=== PATIENT | male | born 1940 | race Caucasian/White ===

== ENCOUNTER 2017-11-13 08:50 | Outpatient (CLI) | payer MEDICARE, OTHER ==
--- NOTE | 2017-11-19 09:28 | PFT ---
PATIENT HISTORY: HEIGHT:71 IN WEIGHT: 276 SMOKER: NO HOW LONG: QUIT 20 PLUS YRS AGO PACKS PER DAY 2 PRODUCTIVE COUGH: NO LUNG DISEASE: PHYSICIAN INTERPRETATION FINAL REPORT: registered pharmacy technician comments patient and good effort and cooperation FVC 1.96 (45%), FEV1 1.69 (59%), FEV1/FVC 0.86. TLC 3.19 (45%), FRC 1.58 (39%), RV 1.34 (49%). Diffusion 5.54 (23%). There is a symmetric reduction to both the FEV1 and the FVC. The ratio suggestive of a restrictive profile. The restriction is confirmed with reduced lung volumes. Diffusion capacity is severely impaired. IMPRESSION: These pulmonary function studies are consistent with severe restrictive lung disease with severe reduction in gas exchange. This is in keeping with the patient's diagnosis of pulmonary fibrosis. There is no significant improvement following bronchodilator. Dry Wall Applicator: KEY Sign Language Translator: KEY LAZCANO
== END 2017-11-13 08:51 | disposition home or self-care (01) ==
LOC: CP 08:50
PROVIDERS: ATTEND Internal Medicine Critical Care Medicine
DX: J84.10 Pulmonary fibrosis, unspecified (principal)
CPT/HCPCS: 94060; 94727; 94729

== ENCOUNTER 2018-09-26 16:58 | Inpatient (IN) | payer MEDICARE, OTHER ==
[~2018-09-26 16:58] MED LIST: ISOVUE-370 76%-LOCM 1 ML ONE
[2018-09-26] MEDS ORDERED: Albuterol Sulfate 2.5 mg/0.5 ml Neb ONE ×2 (17:41→17:42)
[2018-09-26] MEDS ORDERED: Azithromycin 500 MG VIAL ONE (18:00)
[2018-09-26] MEDS ORDERED: Acetaminophen 325 MG TAB PO PRN (19:24)
--- NOTE | 2018-09-26 19:24 | CT ---
CT ANGIOGRAM OF THE CHEST 09/26/18 HISTORY: Elevated D-dimer. Pneumonia. Evaluate for pulmonary embolism. COMPARISON: None. TECHNIQUE: CT angiogram of the chest is performed in the axial plane. Three dimensional reformatted images are s ubmitted for interpretation. FINDINGS: No mediastinal mass, lymphadenopathy or hematoma. Heart is borderline enlarged. Small amount of peric ardial fluid. The visualized aorta has a normal caliber. No periaortic fat stranding. There is inter mittent calcified plaque. There are coronary calcifications. There is hyperplasia of the left adrenal gland. Hypodensities in the left and right kidney is too sma ll to characterize. Loculated right sided pleural effusion. There is consolidation in the right lower lobe due to atelect asis, pneumonia or aspiration. Additionally, there appear to be chronic interstitial changes involvin g the right and left lung with emphysema. There is a scar and atelectasis noted. There are patchy gr ound glass opacities in the left upper lobe and to a lesser extent left lower lobe. Component of nicole a cannot be excluded. There is no pneumothorax. Nonspecific small focus of air just to the right of t he mediastinum is noted and is nonspecific (axial image #59). Trachea and central bronchi are patent . There are no lytic or blastic lesions in the osseous structures. Adequate contrast opacification of t he pulmonary arterial system to the level of the segmental arteries. No filling defect to suggest thr omboembolism. IMPRESSION: 1. No evidence of pulmonary artery embolism to the level of the segmental arteries. 2. Loculated right sided pleural effusion. 3. Consolidation of the right lower lobe due to atelectasis, pneumonia or aspiration. 4. Patchy ground glass opacity likely representing components of edema in the left lung. 5. Emphysematous changes with areas of superimposed scarring. POS: PPP
[2018-09-26] MEDS ORDERED: CCU Electrolyte Replacement 1 EACH IVPB SCH (19:26)
[2018-09-26] MEDS ORDERED: Albuterol Sulfate 1.25 MG/3 ML NEB NEB PRN (19:28)
[2018-09-26] MEDS ORDERED: Nitroglycerin 0.4 MG TAB (25 Tab Bottle) SL PRN (19:31)
[2018-09-26] MEDS ORDERED: Dextrose 5% in Water 1,000 ML IV PRN (19:33)
[2018-09-26] MEDS ORDERED: Dextrose 50% Abboject 50 ML SYRINGE SLOW IVP PRN (19:33)
[2018-09-26 19:37] LABS: Actual Bicarbonate (HCO3a) 22.1 mEq/L (22-28); Analyzer IN Cardio ER; CO2 Tension 44.6 mmHg (35.0-45.0); Calcium, Ionized 1.12 mmol/L (1.12-1.30); Carboxyhemoglobin (COHb) 0.5 gm% (0.0-3.0); Hemoglobin (Hb) 12.1 g/dL (14.0-18.0); O2 Tension (PaO2) 59.9 mmHg (> 70.0); Potassium - ABG Lab 4.26 mmol/L (3.70-5.30); pH, Arterial 7.31 (7.35-7.45)
[2018-09-26 19:38] LABS: Puncture Site RRA
[2018-09-26] MEDS ORDERED: Magnesium Oxide 400 MG TAB PO PRN ×2 (20:04)
[2018-09-26] MEDS ORDERED: Potassium Chloride 40 MEQ in Premix Bag 1 BAG IVPB PRN (20:04)
[2018-09-26] MEDS ORDERED: Potassium Chloride 20 MEQ TAB PO PRN (20:04)
[2018-09-26] MEDS ORDERED: Potassium Phosphate 9 MMOL in Sodium Chloride 0.9% 100 ML IVPB PRN (20:04)
[2018-09-26] MEDS ORDERED: CCU ELECTROLYTE REPLACEMENT PROTOCOL FS PRN (20:04)
[2018-09-26] MEDS ORDERED: Potassium Phosphate 15 MMOL in Sodium Chloride 0.9% 250 ML 250 ML IV PRN (20:04)
[2018-09-26] MEDS ORDERED: Magnesium 2 GM/NS 0.9% 100 ML 2 GM in Premix Bag 1 BAG IVPB PRN (20:04)
[2018-09-26] MEDS ORDERED: Potassium Phosphate 12 MMOL in Sodium Chloride 0.9% 250 ML 250 ML IV PRN (20:04)
[2018-09-26] MEDS ORDERED: Potassium Chloride 40 MEQ in Sodium Chloride 0.9% 250 ML 250 ML IVPB PRN (20:04)
[2018-09-26] MEDS ORDERED: Piperacillin/Tazobactam 4.5 GM VIAL ONE (20:38)
[2018-09-26] MEDS ORDERED: Tamsulosin HCl 0.4 MG CAP PO SCH (21:00)
[2018-09-26] MEDS ORDERED: Montelukast Sodium 10 mg Tablet PO SCH (21:00)
[2018-09-26] MEDS ORDERED: Insulin Glargine 30 UNITS in Pre-Filled Syringe 1 EACH SC SCH (21:00)
[2018-09-26] MEDS ORDERED: Atorvastatin Calcium 20 MG TAB PO SCH (21:00)
--- NOTE | 2018-09-26 21:16 | CON ---
DATE OF CONSULTATION: 09/26/2018 CONSULTING PHYSICIAN: Ana Ross M.D. REASON FOR CONSULTATION: Right-sided empyema. HISTORY OF PRESENT ILLNESS: Mr. Mejía is a wonderfully pleasant 78-year-old male, who I have known for number of years through the office for followup of his idiopathic pulmonary fibrosis. He has been sick now for about a week with back pain. He has developed cough and generalized failure to thrive. He presented to the emergency room today with the above symptoms. X-ray showed a large right effusion, this was confirmed by CT scan which demonstrated the right effusion was loculated. PAST MEDICAL HISTORY: 1. Idiopathic pulmonary fibrosis, not requiring oxygen. 2. Atrial fibrillation requiring anticoagulation with Eliquis. 3. Coronary artery disease. 4. Diabetes mellitus type 2. 5. Peptic ulcer disease. 6. Benign prostatic hypertrophy. PAST SURGICAL HISTORY: Right knee surgery. PSYCHIATRIC HISTORY: Anxiety. SOCIAL HISTORY: Rarely drinks alcohol. Quit smoking many years ago. ALLERGIES: TETANUS IMMUNOGLOBULIN. MEDICATIONS PRIOR TO ADMISSION: He is currently not taking anything for pulmonary fibrosis. I believe he uses albuterol as needed and takes Eliquis for anticoagulation for his atrial fibrillation. I will have to confirm the rest of his medications. REVIEW OF SYSTEMS: He has had decreased appetite. No fever, or chills. He has had the right-sided chest pain/back pain. No hematochezia, no hematuria, no dysuria. PHYSICAL EXAMINATION: VITAL SIGNS: O2 sats running in the high 80s on a 40% Venti mask, temperature 98.4, pulse 118, respirations 25, blood pressure 116/59. GENERAL: The patient is in [id number] respiratory discomfort. HEENT: Pupils reactive. Sclerae anicteric. Oropharynx clear. NECK: Without adenopathy or JVD. LUNGS: Diminished breath sounds on the right side. Globally he has crackles over the left side. CARDIAC: S1 and S2 irregularly irregular. No murmur. ABDOMEN: Soft, nontender, nondistended. EXTREMITIES: No clubbing, cyanosis, edema. LABORATORY DATA: pH in the pleural fluid was 6.5. ABG, pH 7.31, pCO2 of 44, PO2 of 60, that is on 40% Venti mask. Lactate 2.5. Troponin 0.025. White blood cell count 29.9, hematocrit 41.7, platelet count 525 with 92% neutrophils. D-dimer 1.0, sodium 139, potassium 4.7, chloride 103, CO2 of 21, BUN 30, creatinine 1.2, glucose 217, lactate 2.5. BNP 114. IMAGING: CT showed multiloculated right pleural effusion. ASSESSMENT: 1. Right-sided empyema. 2. Idiopathic pulmonary fibrosis. 3. Diabetes mellitus. 4. Chronic atrial fibrillation. PLAN: The patient will need decortication. He is at increased risk for complication given his hepatic pulmonary fibrosis, though functionally he has done quite well and I think he should probably go forward with the procedure understanding that this could be a major setback with his pulmonary fibrosis. I have discussed case with Dr. Barnett who will see the patient. I have performed diagnostic thoracentesis. The patient will be started on Zosyn. He will be put on IV fluids with normal saline. His anticoagulation has been held. He has been left n.p.o. Pleural fluid has been sent for culture. The above encompassed 70 minutes time, of that time, greater than 50% was spent with the patient and/or in his unit in the hospital. Job ID: [id number]
--- NOTE | 2018-09-26 21:23 | HP ---
PRIMARY CARE PHYSICIAN: Dr. Kendall. CHIEF COMPLAINT: Back pain. HISTORY OF PRESENT ILLNESS: This is a 78-year-old male with history of pulmonary fibrosis; type-2 diabetes, on insulin therapy; atrial fibrillation, on full anticoagulation; hypertension; dyslipidemia; BPH; who presents to the emergency room at [place] with a complaint of difficulty breathing and back pain. The patient reports that his back has been hurting for about a week and that his breathing has been worse over the past couple of weeks. He reports being evaluated 4 days ago in the emergency room for the back pain, was told that it was likely either a back sprain or a herniated disk. He was discharged to home and notes that both issues are worse. For the pulmonary fibrosis, he would use his albuterol nebulizer about 1 time per month, and over the past 2 weeks, he is up to 2 times per day. He denies any fevers or chills, he notes a chronic cough that is productive of clear fluid, and denies any change in this. He denies any precipitating factors or relieving factors. The patient also notes nausea few days ago that has resolved, wheezing that has been persistent. He denies any prior history of similar symptoms. In the emergency room in [place], the patient was treated with DuoNeb, Rocephin 1 g, started on a non-rebreather and transferred to this facility. Here he has received azithromycin 500 mg IV, DuoNeb, albuterol nebulizer, and Hospitalist called for admission for concern of pneumonia with effusion. ALLERGIES: ALLERGIC TO TETANUS VACCINE. CURRENT MEDICATIONS: Reconciled with the list provided by the patient. 1. Albuterol nebulizer as needed. 2. Dexilant 60 mg daily. 3. Onglyza 2.5 mg daily. 4. Losartan 25 mg daily. 5. Metoprolol 50 mg b.i.d. 6. Metformin 500 mg b.i.d. 7. Ranitidine 300 mg b.i.d. 8. Eliquis 5 mg b.i.d. 9. Amiodarone 200 mg b.i.d. 10. Lipitor 20 mg at night. 11. Flomax 0.4 mg at night. 12. Lantus 75 units at night. 13. Flonase daily. 14. Singulair 10 mg daily. 15. Nitroglycerin 0.4 mg as needed. 16. Diazepam 5 mg as needed. 17. Multivitamin. 18. Aspirin 81 mg daily. PAST MEDICAL HISTORY: 1. Atrial fibrillation, on full anticoagulation. 2. Hypertension. 3. Dyslipidemia. 4. Diabetes mellitus. 5. Pulmonary fibrosis followed by Dr. Mock. 6. BPH. 7. GERD with history of peptic ulcer disease. 8. Allergic rhinitis and chronic cough. PAST SURGICAL HISTORY: Right knee. SOCIAL HISTORY: The patient lives alone. His surrogate decision maker is his niece, Marian, who is an deputy commonwealth's attorney in [place]. He quit tobacco more than 10 years ago. Occasionally uses alcohol, estimating 2 times per month. FAMILY HISTORY: He denies. REVIEW OF SYSTEMS: As noted above. Negative for fevers, chills, chest tightness, abdominal pain, diarrhea. Positive for chronic cough, runny/stuffy nose, wheezing, and nausea. All remaining review of systems are reviewed and negative. PHYSICAL EXAMINATION: VITAL SIGNS: Blood pressure is 128/62, temp 97.6, respirations are 24, pulse 97 , sats 98% on a 50% Venti mask. GENERAL: The patient is awake, alert, responsive. He is tachypneic, but he is not in apparent distress. HEENT: Pupils are equal and round. No scleral icterus. His oral mucosa is pink, appears dry. NECK: Supple, nontender. LYMPHATICS: No palpable cervical or supraclavicular lymphadenopathy. LUNGS: Diminished breath sounds throughout the right side. No audible wheezing , rhonchi, or rales. HEART: Normal S1, S2. Regular rate and rhythm. No significant murmur. ABDOMEN: Soft with present bowel sounds. Nontender, nondistended. EXTREMITIES: No clubbing, cyanosis, or edema. VASCULAR: 2+ dorsalis pedis pulses. SKIN: No visible rashes. PSYCH: The patient is alert and oriented x4. NEUROLOGIC: No focal deficits. LABORATORY DATA: Labs are personally reviewed. His CBC; 29.9, 12.5, 41.7, 525 with 92% neutrophils, 3% lymphocytes. Renal panel; 139, 4.7, 103, 21, 30, 1.29, 217. Lactic acid is 2.4. BNP 114. AST 25, ALT 19, alkaline phosphatase 82, total protein 5.8, albumin 3.1. EKG; right bundle-branch block with a right axis deviation, sinus rhythm, no ST changes. Chest x-ray is personally reviewed, which shows interstitial and alveolar opacities throughout the lung on the right side with a presumed right-sided pleural effusion. CT angiogram personally reviewed, shows no evidence of PE; loculated right-sided pleural effusion; consolidation of the right lower lobe due to atelectasis, pneumonia, or aspiration; patchy ground-glass opacity, likely edema in the left lung and emphysematous changes with superimposed scarring. IMPRESSION: 1. Acute hypoxic respiratory failure secondary to pleural effusion, concern for pneumonia with empyema. 2. Sepsis secondary to above. 3. History of pulmonary fibrosis. 4. Atrial fibrillation, on full anticoagulation, currently in sinus rhythm. 5. Diabetes mellitus, unknown control. 6. Hypertension, unknown control. 7. Dyslipidemia. 8. Gastroesophageal reflux disease with history of peptic ulcer disease, asymptomatic. 9. Chronic allergic rhinitis and cough. 10. Benign prostatic hypertrophy. PLAN: 1. Admission to the ICU. 2. Consultation with Dr. Mock. 3. Broaden his antibiotics with Zosyn. Check an ABG now. Consider BiPAP. 4. Nebulizer therapy q.4 hours scheduled q.2 hours p.r.n. 5. Continuing his metoprolol, will hold his losartan for now and monitor his blood pressures. 6. Continue the amiodarone; however, hold the Eliquis as it is possible that if the patient has an empyema, he may require surgery. 7. We will continue the Lantus; however, lower in the amount as I am uncertain how much p.o. intake that patient will have with his current breathing status. We will cover with sliding scale insulin and adjust the Lantus as he is tolerating p.o. 8. Continuing his usual medications for GERD, BPH, allergies. 9. P.r.n. nitroglycerin and continuing his beta jamey. 10. Consider BiPAP therapy with any change in respiratory status. 11. DVT prophylaxis. The patient has been fully anticoagulated with Eliquis. We will use pneumatic compression devices and hold further Eliquis in case he does require surgery. 12. GI prophylaxis not indicated. The patient is on PPI and H2 jamey. We will continue this. 13. Code status is full, and surrogate decision maker is his niece as noted above. 14. The patient is at high risk, given age comorbidities and current presentation. 15. Reviewed the plan of care with the patient and his granddaughter. No questions or further needs at the end of evaluation. Job ID: [id number] MTDD
--- NOTE | 2018-09-26 21:40 | OP ---
DATE OF PROCEDURE: 09/26/2018 PROCEDURE: Right thoracentesis. PREOPERATIVE DIAGNOSIS: Right empyema. POSTOPERATIVE DIAGNOSIS: Right empyema. ANESTHESIA: 1% lidocaine without epinephrine. DESCRIPTION OF PROCEDURE: Informed consent was obtained from the patient, who understood the risks involved and agreed to proceed. The right posterior hemothorax was cleansed with chlorhexidine and draped sterilely at the mid scapular line approximately at fifth and sixth interspace. The entry site was anesthetized with 1% lidocaine without epinephrine. A Whwz-L-Dcqltgry catheter was inserted in the pleural space and approximately 50 mL of yellow pus was aspirated. The pH on the fluid was 6.5. The fluid was sent for culture. Job ID: [id number]
[2018-09-26 21:42] LABS: BF Color Yellow; Body Fluid Source Paracentesis Fluid; Clarity Hazy (Clear); Tube # 3; WBC/NonHematic-Auto 1420 /cumm
--- NOTE | 2018-09-26 21:42 | CON ---
DATE OF CONSULTATION: HISTORY OF PRESENT ILLNESS: This is a 78-year-old gentleman followed on a yearly basis by Dr. Mock in regard to a possible diagnosis of pulmonary fibrosis. He is normally followed by his primary care physician in [place] where patient currently resides running couple of phorus. He is also followed by Dr. Tariq Flores in regard to a new diagnosis of atrial fibrillation on one occasion being diagnosed in July 2018. Over the past week, he has had progressive discomfort in the right side of his chest with some fatigue and dyspnea. He states he presented to the emergency room primarily due to the pain in the right side of his chest, although friends notice that he was dyspneic. PAST SURGICAL HISTORY: Includes knee arthroscopy. PAST MEDICAL HISTORY: Includes: 1. Diabetes type 2. 2. Atrial fibrillation as noted. 3. Possible pulmonary fibrosis. 4. History of the peptic ulcer disease. 5. Benign prostatic hypertrophy. 6. Hypertension. SOCIAL HISTORY: The patient is a nonsmoker. 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 He drinks socially and rarely. He has not smoked in greater than 10 years. PHYSICAL EXAMINATION: GENERAL: On examination, he is alert, cooperative gentleman, dyspneic at rest with face mask oxygen on. VITAL SIGNS: His heart rate is about 110, sinus rhythm. Blood pressure is 120/74. NECK: No carotid bruits. Lungs: He has rhonchi bilaterally. No wheezes. CARDIAC: Tachycardia, no murmur detected. ABDOMEN: Quite protuberant and nontender. EXTREMITIES: He has no peripheral edema. He has a palpable left dorsalis pedis and I am unable to palpate a pedal pulse in the right foot. IMAGING: Chest x-ray and CT scan were reviewed and he has a large pericardial effusion in the right chest. Thoracentesis today demonstrated purulent material with a pH of 6.45. PLAN: At this time is for a thoracoscopy tomorrow and the patient gives informed consent for this. CURRENT MEDICATIONS: Include: 1. Eliquis b.i.d. with the last dose being taken this morning. 2. He also takes metoprolol succinate 50 mg daily. 3. Dexilant 60 mg daily. 4. Onglyza 2.5 mg daily. 5. Metformin 500 mg daily. 6. Lisinopril 5 mg daily. 7. Ranitidine 300 mg daily. 8. Lipitor 20 mg daily. 9. Flomax 0.4 daily. 10. Lantus insulin 75 units daily. 11. Albuterol inhaler as needed. 12. Losartan, dose unknown, daily. ALLERGIES: TETANUS. LABORATORY DATA: [place] [address]. Lactic acid of 2.5, hemoglobin of 12. IMAGING: CT and chest x-ray as noted above. Job ID: [id number]
[2018-09-26 21:52] LABS: Fluid, Triglycerides 32 mg/dL (Not Available); Pleural Fluid, Amylase Less than 30 U/L (Not Available); Pleural Fluid, Glucose Less than 20 mg/dL; Pleural Fluid, LDH 1658 U/L (Not Available); Pleural Fluid, Protein 3.9 g/dL
[2018-09-26 21:53] LABS: BF RBC Count - Manual 1400 /cumm
[2018-09-26 22:12] LABS: BF Segmented Neutrophils 88 %; Cell Count Non Hematic 12 %
[2018-09-26] MEDS: Sodium Chloride 0.9% 1,000 ML IV SCH (23:05)
[2018-09-26] MEDS: Amiodarone 200 MG TAB PO SCH (23:21)
[2018-09-26] MEDS: Famotidine 20 MG TAB PO SCH (23:21)
[2018-09-26] MEDS: Metoprolol Tartrate 50 MG TAB PO SCH (23:22)
[2018-09-26] MEDS: HumaLOG 300 UNITS/3 ML VIAL SC PRN (23:30)
[2018-09-27 00:07] LABS: Lactic Acid 1.9 mmol/L (0.5-2.2)
[2018-09-27] MEDS: Piperacillin/Tazobactam 3.375 GM in Sodium Chloride 0.9% 100 ML IVPB SCH ×4 (03:05→20:22)
[2018-09-27 06:03] LABS: ALT (SGPT) 17 U/L (8-55); AST (SGOT) 26 U/L (5-34); Albumin 2.9 g/dL (3.4-4.8); Alkaline Phosphatase 98 U/L (40-150); Anion Gap 17 mmol/L (10-20); BUN (Urea Nitrogen) 31 mg/dL (8.4-25.7); Bilirubin, Total 0.4 mg/dL (0.2-1.2); Calc. Creatinine Clearance 98 mL/min (70-130); Calcium 8.5 mg/dL (7.8-10.44); Carbon Dioxide 20 mmol/L (23-31); Chloride 105 mmol/L (98-107); Estimated GFR-MDRD 67; Globulin 3.7 g/dL (2.4-3.5); Glucose 115 mg/dL (83-110); Potassium 5.1 mmol/L (3.5-5.1); Protein, Total 6.6 g/dL (5.8-8.1); Sodium 137 mmol/L (136-145)
[2018-09-27] MEDS: Sodium Chloride 0.9% 1,000 ML IV SCH ×2 (06:12→09:40)
[2018-09-27 06:22] LABS: Band 14 % (5-11); Elliptocytes SLIGHT = 2-5 cells (100X) (0-1/hpf); Hemoglobin 11.8 g/dL (14.0-18.0); Lymphocytes 1 % (21-51); MDiff Complete? YES; Mean Corpuscular HGB CONC 29.8 g/dL (32.0-36.0); Mean Corpuscular Hemoglobin 27.2 pg (27.0-31.0); Mean Corpuscular Volume 91.1 fL (78.0-98.0); Mean Platelet Volume 8.9 fL (7.4-10.4); Monocytes 5 % (0-10); Neutrophil 80 % (42-75); Platelet Count 402 thou/uL (130-400); Platelet Morphology Comment Appears Increased; RBC Distribution Width 14.8 % (11.5-14.5); Red Blood Cell (RBC) Count 4.36 mill/uL (4.70-6.10); Target Cells SLIGHT = 2-5 cells (100X) (0-1/hpf); White Blood Cell (WBC) Count 21.4 thou/uL (4.8-10.8)
--- NOTE | 2018-09-27 08:45 | PRG ---
DATE OF SERVICE: 09/27/2018 SUBJECTIVE: He is currently on the BiPAP and appears comfortable. He is saying he has less pain on the right side. He is scheduled for a thoracoscopic decortication later today. OBJECTIVE: VITAL SIGNS: On exam, his temperature is 98.9, pulse 96, blood pressure 154/81, O2 saturation 96%. He is currently on BiPAP 07/09. HEENT: Unremarkable. NECK: No JVD. LUNGS: Decreased breath sounds in the right base. Crackles on the left. CARDIAC: S1, S2. Regular. ABDOMEN: Obese, soft, nontender. EXTREMITIES: No edema. LABORATORY DATA: White blood cell count 21.4, hematocrit 39.7, and platelet count 402. Sodium 137, potassium 5.1, chloride 105, CO2 of 20, BUN 31, creatinine 1.1, glucose 115. The thoracentesis fluid demonstrated LDH of 1650, total protein 3.9, high white blood cells, glucose was less than 20, pH was 6.5. ASSESSMENT: Right-sided empyema. PLAN: Decortication today. Continue BiPAP. I expect him to come back on mechanical ventilation and he may need to be on mechanical ventilation for a day or two. We will manage that with caution. Job ID: [id number]
[2018-09-27] MEDS ORDERED: Fluticasone Propionate Nasal Spray 16 gm Bottle NASAL SCH (09:00)
[2018-09-27] MEDS ORDERED: Aspirin 81 mg Enteric Coated Tablet PO SCH (09:00)
[2018-09-27] MEDS: Famotidine 20 MG TAB PO SCH (09:55)
[2018-09-27] MEDS: Amiodarone 200 MG TAB PO SCH (09:55)
[2018-09-27] MEDS: Metoprolol Tartrate 50 MG TAB PO SCH (09:56)
--- NOTE | 2018-09-27 11:08 | PRG ---
DATE OF SERVICE: 09/27/2018 SUBJECTIVE: The patient was seen and examined at bedside. He is on BiPAP during my visit. He has some chest discomfort in the right upper chest while breathing deeply. OBJECTIVE: VITAL SIGNS: Blood pressure is 147/60, pulse is 98, respiratory rate is 28, and O2 saturation is 98%. HEENT: His head is atraumatic and normocephalic. Eyes, PERRLA. Sclerae are nonicteric. Conjunctivae slightly pink and palish. Oral mucosa was not examined since he has a BiPAP mask on him at the time of my visit. LUNGS: Breath sounds diminished over the right lung, present in the lower parts. Few crackles at this area and at the left base. No wheezing. HEART: S1, S2 normal. No S3. No S4. ABDOMEN: Obese, soft, nontender, nondistended. EXTREMITIES: No clubbing, cyanosis, or edema. He wears SCDs. NEUROLOGIC: He is alert and oriented x4. There are no any motor or sensory deficits present. Cranial nerves are intact. LABORATORY DATA: Labs showed white count of 21.4, hemoglobin 11.8, hematocrit 33.7, and platelet count is 402,000. Chemistry showed sodium of 137, potassium 5.1, chloride 105, CO2 of 20, BUN 31, creatinine 1.06, glucose 115, albumin 2.9, and globulin 3.7. The rest of chemistry within normal limits. Glucose 115. Paracentesis fluid showed yellow color, hazy clarity, pH of 7.4, WBCs 1420, 88 of neutrophils, nonhematologic percentage is 12, fluid triglycerides 32, pleural total protein 3.9, pleural LDH 1658, pleural glucose is less than 20, and pleural amylase is less than 30. Microbiology pleural fluid did not show any WBCs or organism. IMPRESSION: 1. Right-sided empyema. The patient was supposed to have decortication done by Dr. Barnett. For now, we will continue BiPAP for his respiratory failure. 2. Acute hypoxic respiratory failure, secondary to right-sided empyema. 3. Sepsis. 4. History of pulmonary fibrosis. 5. Atrial fibrillation, on amiodarone. 6. Diabetes mellitus, well controlled at home. 7. Hypertension. 8. Dyslipidemia. 9. Gastroesophageal reflux disease. 10. Chronic allergic rhinitis and cough. 11. Benign prostatic hypertrophy. We will continue his antibiotic which is Zosyn. We will continue BiPAP since he was scheduled for decortication this morning. We will continue amiodarone. We will continue current diabetic regimen with 25 units of insulin Lantus daily and sliding scale. We will continue DVT prophylaxis with SCDs. Job ID: [id number]
[2018-09-27] MEDS ORDERED: Bupivacaine HCl 0.5%/Epinephrine 1:200,000/PF 30 ml Vial ONE (11:37)
[2018-09-27] MEDS ORDERED: Lidocaine 1% PF 5 ML VIAL ONE (13:15)
[2018-09-27] MEDS ORDERED: PROPOFOL 200 MG/20 ML VIAL ONE (13:15)
[2018-09-27] MEDS ORDERED: Vecuronium 10 MG VIAL ONE (13:15)
[2018-09-27] MEDS ORDERED: PHENYLEPHRINE-NS 100 MCG/ML 10 ML SYRINGE ONE (13:15)
[2018-09-27] MEDS ORDERED: Succinylcholine Chloride 20 MG/ML 10 ml SYRINGE FS ONE (13:15)
[2018-09-27] MEDS ORDERED: Fentanyl 250 MCG/5 ML VIAL ONE (13:33)
[2018-09-27] MEDS ORDERED: Phenylephrine HCL 10 MG/ML VIAL ONE (14:49)
[2018-09-27] MEDS ORDERED: Piperacillin/Tazobactam 3.375 GM VIAL ONE (15:04)
[2018-09-27] MEDS ORDERED: Midazolam HCl 2 mg/2 ml Vial ONE (15:49)
[2018-09-27] MEDS ORDERED: Propofol 1,000 MG/100 ML VIAL IV ONE (16:00)
[2018-09-27] MEDS ORDERED: Propofol BOLUS 1,000 MG/100 ML VIAL IV PRN (16:40)
[2018-09-27] MEDS ORDERED: DISCONTINUE PREVIOUS NARCOTIC PAIN MEDICATIONS AND BENZODIAZEPINES FS SCH (16:40)
[2018-09-27] MEDS ORDERED: Morphine 2 MG/ML SYRINGE SLOW IVP PRN (16:40)
[2018-09-27] MEDS ORDERED: Lorazepam 2 MG/ML VIAL SLOW IVP PRN (16:40)
[2018-09-27] MEDS ORDERED: Fentanyl BOLUS 250 ML IVPB PRN (16:40)
[2018-09-27] MEDS ORDERED: Ventilator Sedation Protocol 1 EACH FS SCH (16:57)
[2018-09-27] MEDS ORDERED: Norepinephrine 8 MG/0.9% NS 250 ML IVPB PRN (16:57)
[2018-09-27 17:05] LABS: Actual Bicarbonate (HCO3a) 24.7 mEq/L (22-28); Base Excess (BEa) -3.8 mEq/L (-2.0 to +3.0); Calcium, Ionized 1.07 mmol/L (1.12-1.30); Carboxyhemoglobin (COHb) 0.7 gm% (0.0-3.0); Hemoglobin (Hb) 11.1 g/dL (14.0-18.0); O2 Tension (PaO2) 208.9 mmHg (> 70.0); Potassium - ABG Lab 4.86 mmol/L (3.70-5.30)
[2018-09-27 17:19] LABS: ALV-art Gradient 212.075 (0-20); CO2 Tension 62.5 mmHg (35.0-45.0); Puncture Site ALINE; pH, Arterial 7.21 (7.35-7.45)
--- NOTE | 2018-09-27 18:08 | RAD ---
CHEST ONE VIEW: History: Chest tube placement. Comparison: CT chest prior day. FINDINGS: Right sided thoracostomy tube tip projects over the right lung apex. Small volume right hemithorax barnes bcutaneous emphysema. [place] is within the thoracic cavity. A second thoracostomy tube tip projects over the middle mediastinum. Right subclavian central venous catheter is in good position. Enteric tube tip above the sherry appro ximately 1.8 cm. Multifocal left sided airspace opacities. IMPRESSION: Progressive opacities in the left lung concerning for infection. POS: BRODYH
[2018-09-27] MEDS ORDERED: Dexamethasone 4 mg/ml Vial SLOW IVP SCH (18:45)
[2018-09-27] MEDS: fentaNYL Citrate/PF 2,000 MCG in Sodium Chloride 0.9% 60 ML IV SCH (20:01)
[2018-09-27] MEDS: Enoxaparin Sodium 40 MG/0.4 ML SYRINGE SC SCH (20:22)
[2018-09-27] MEDS ORDERED: Insulin Glargine 25 UNITS in Pre-Filled Syringe 1 EACH SC SCH (21:00)
[2018-09-28] MEDS: Piperacillin/Tazobactam 3.375 GM in Sodium Chloride 0.9% 100 ML IVPB SCH ×4 (04:15→20:35)
[2018-09-28] MEDS: Sodium Chloride 0.9% 1,000 ML IV SCH ×3 (04:15→17:12)
[2018-09-28 05:14] LABS: ALT (SGPT) 13 U/L (8-55); AST (SGOT) 22 U/L (5-34); Albumin 2.2 g/dL (3.4-4.8); Alkaline Phosphatase 63 U/L (40-150); Anion Gap 14 mmol/L (10-20); BUN (Urea Nitrogen) 31 mg/dL (8.4-25.7); Bilirubin, Total 0.4 mg/dL (0.2-1.2); Calc. Creatinine Clearance 105 mL/min (70-130); Calcium 7.8 mg/dL (7.8-10.44); Carbon Dioxide 22 mmol/L (23-31); Chloride 112 mmol/L (98-107); Estimated GFR-MDRD 73; Glucose 138 mg/dL (83-110); Potassium 4.5 mmol/L (3.5-5.1); Protein, Total 5.2 g/dL (5.8-8.1); Sodium 143 mmol/L (136-145)
[2018-09-28 05:20] LABS: Band 17 % (5-11); Hemoglobin 8.9 g/dL (14.0-18.0); Lymphocytes 2 % (21-51); MDiff Complete? YES; Mean Corpuscular HGB CONC 30.3 g/dL (32.0-36.0); Mean Corpuscular Hemoglobin 27.1 pg (27.0-31.0); Mean Corpuscular Volume 89.4 fL (78.0-98.0); Mean Platelet Volume 7.8 fL (7.4-10.4); Neutrophil 81 % (42-75); Platelet Count 409 thou/uL (130-400); Platelet Morphology Comment Appears Increased; RBC Distribution Width 14.4 % (11.5-14.5); Red Blood Cell (RBC) Count 3.28 mill/uL (4.70-6.10); White Blood Cell (WBC) Count 15.9 thou/uL (4.8-10.8)
[2018-09-28] MEDS: Dexamethasone 4 mg/ml Vial SLOW IVP SCH ×4 (06:06→17:29)
--- NOTE | 2018-09-28 06:43 | RAD ---
CHEST ONE VIEW: INDICATIONS: Daily CCU examination. COMPARISON: 09/27/2018 FINDINGS: Right subclavian central venous catheter, ET tube, and right-sided thoracostomy tube are unchanged. No pneumothorax is evident. Parenchymal opacities are stable. Cardiomegaly and pulmonary vascular c ongestion persist. Small bilateral pleural effusions are stable. IMPRESSION: Stable examination. POS: BH
[2018-09-28 06:49] LABS: Actual Bicarbonate (HCO3a) 21.5 mEq/L (22-28); Base Excess (BEa) -2.4 mEq/L (-2.0 to +3.0); CO2 Tension 33.4 mmHg (35.0-45.0); Calcium, Ionized 1.05 mmol/L (1.12-1.30); Carboxyhemoglobin (COHb) 0.9 gm% (0.0-3.0); Hemoglobin (Hb) 9.4 g/dL (14.0-18.0); O2 Tension (PaO2) 144.1 mmHg (> 70.0); Potassium - ABG Lab 4.23 mmol/L (3.70-5.30); pH, Arterial 7.43 (7.35-7.45)
[2018-09-28 06:51] LABS: Puncture Site ALINE
[2018-09-28] MEDS ORDERED: Vecuronium 10 MG VIAL IVP SCH (08:00)
[2018-09-28] MEDS ORDERED: Vecuronium 10 MG VIAL ONE (08:04)
[2018-09-28] MEDS ORDERED: Sterile Water 10 ML ONE (08:07)
--- NOTE | 2018-09-28 08:21 | PRG ---
DATE OF SERVICE: 09/28/2018 TIME SPENT: 35 minutes of critical care time. SUBJECTIVE: Mr. Mejía remains intubated on mechanical ventilation post his thoracoscopy yesterday. OBJECTIVE: VITAL SIGNS: On exam, his temperature is 98.2, pulse is 69, and blood pressure 136/53. He has an arterial line in. 24-hour intake 2296, output 890. HEENT: Has endotracheal tube size #[address]. NECK: No JVD. LUNGS: Coarse rhonchi. CARDIOVASCULAR: S1, S2 regular without murmur. ABDOMEN: Soft, obese, nontender, and nondistended. EXTREMITIES: No clubbing, cyanosis, or edema. LABORATORY DATA: The pH 7.43, pCO2 of 33, PO2 of 144 on SIMV rate 22, tidal volume 550, PEEP 5, pressure support of 10, and FiO2 70%. White blood cell count is 15.9, hematocrit 29.3, and platelet count 409. Sodium 143, potassium 4.5, chloride 112, CO2 of 22, BUN 31, creatinine 0.9, and glucose 138. Culture at this point shows no growth to date. DIAGNOSTIC STUDIES: Chest x-ray shows diffuse interstitial changes bilaterally. He had 2 chest tubes in the right. No evidence of pneumothorax. ASSESSMENT: 1. Right-sided empyema. 2. Acute respiratory failure, requiring mechanical ventilation. The patient apparently was a difficult intubation and bled to his airways yesterday and may have had some trauma to the vocal cord area. 3. Pulmonary fibrosis. PLAN: 1. I do not think it is reasonable to try to wean him today. I have adjusted his ventilator parameters some. We will keep him on steroids. I will perform bronchoscopy to make sure all the bleeding is out of the airways. We will continue him on broad-spectrum IV antibiotics and adjust as needed for culture results. 2. Start enteral tube feeds. Job ID: [id number]
[2018-09-28] MEDS: Propofol 1,000 MG/100 ML VIAL IV PRN ×4 (08:40→22:04)
--- NOTE | 2018-09-28 09:10 | OP ---
DATE OF PROCEDURE: 09/28/2018 PROCEDURES PERFORMED: Fiberoptic bronchoscopy with bronchoalveolar lavage. PREOPERATIVE DIAGNOSIS: Mucus plugging. POSTOPERATIVE DIAGNOSIS: Mucus plugging. ANESTHESIA: The patient was on mechanical ventilation before the procedure. With that, he was on fentanyl and propofol drips. Additionally, I gave him 10 mg of Norcuron IV to facilitate cooperation. Informed consent was obtained from the patient's granddaughter, who agreed for the patient to undergo the procedure. DESCRIPTION OF PROCEDURE: The patient was placed on 100% FiO2 through the mechanical ventilation. The Olympus bronchoscope was placed through the patient's endotracheal tube. Significant findings included tenacious secretions present in both mainstem bronchi with some old bleeding present. This was lavaged with normal saline and aspirated. There was tenacious secretions present in both lower lobes. Again, lavage was performed until all mucus was removed. He tolerated the procedure well. Job ID: [id number]
--- NOTE | 2018-09-28 09:23 | OP ---
DATE OF PROCEDURE: 09/27/2018 PROCEDURE PERFORMED: Insertion of right subclavian triple-lumen CVP and right thoracoscopy with total lung decortication. ANESTHESIA: General. ESTIMATED BLOOD LOSS: Less than 100. DESCRIPTION OF PROCEDURE: After adequate anesthesia had been obtained with a double-lumen tube, which was a significant effort due to the patient's marginal pulmonary status and his large size. Prior to turning in the left lateral decubitus position, I placed a right subclavian triple-lumen CVP. After placement in the left lateral decubitus position, incision was made and blunt dissection was carried down to the chest wall, which was a good distance due to his obesity. The chest was entered just inferior to the scapular tip and foul smelling thin fluid was evacuated with the suction. Cultures have been obtained previously with thoracentesis and so further cultures were not obtained. After breaking down some adhesions and removing some gelatinous fluid through this incision, a separate port site was created and through these two port sites, the remainder of the decortication was carried out. This had to be done with intermittent ventilation due to the fact that the lungs still ventilated on the right side. After removing all gelatinous debris and irrigating with several liters of sterile water, two #32 chest tubes were placed under direct vision. Following which, the wounds were closed and the patient was taken to the ICU in guarded condition. Job ID: [id number]
--- NOTE | 2018-09-28 10:18 | PDOC.PN ---
- Subjective Encounter Start Date: 09/28/18 Encounter Start Time: 12:00 Subjective: Patient remains on vent, propofol sedation, arousable and shakes head -: yes/no. Denies pain. - Objective Resuscitation Status - Order Detail: 09/26/18 19:24 Resuscitation Status Routine Resuscitation Status: FULL: Full Resuscitation MAR Reviewed: Yes Vital Signs & Weight: Vital Signs (12 hours) Pulse Resp BP Pulse Ox 09/28/18 10:00 18 09/28/18 06:36 69 117/47 L 09/28/18 06:35 67 22 H 99 09/28/18 06:00 25 H 09/28/18 04:00 22 H 09/28/18 02:34 69 22 H 100 09/28/18 02:00 22 H 09/28/18 00:00 22 H Weight Weight 273 lb 6.4 oz Most Recent Monitor Data Heart Rate from ECG 74 NIBP 109/54 NIBP BP-Mean 72 Respiration from ECG 18 SpO2 97 I&O: 09/27/18 09/28/18 09/29/18 06:59 06:59 06:59 Intake Total 1100 2296 Output Total 400 890 Balance 700 1406 Result Diagrams: 09/28/18 04:46 09/28/18 04:46 Additional Labs: Accuchecks 09/28/18 09/27/18 09/27/18 10:03 20:29 12:29 POC Glucose 141 H 129 H 141 H Phys Exam - Physical Examination Constitutional: NAD HEENT: moist MMs Respiratory: no wheezing, no rales, no rhonchi Cardiovascular: RRR Gastrointestinal: soft, positive bowel sounds Deviation from normal: sedated on vent Dx/Plan (1) Empyema, right Code(s): J86.9 - PYOTHORAX WITHOUT FISTULA Status: Acute Comment: s/p decortication 09/[address] Barnett (2) Acute respiratory failure with hypoxia Code(s): J96.01 - ACUTE RESPIRATORY FAILURE WITH HYPOXIA Status: Acute Comment: on mechanical ventilation (3) Sepsis Code(s): A41.9 - SEPSIS, UNSPECIFIED ORGANISM Status: Acute (4) Pulmonary fibrosis Code(s): J84.10 - PULMONARY FIBROSIS, UNSPECIFIED Status: Chronic (5) Atrial fibrillation Code(s): I48.91 - UNSPECIFIED ATRIAL FIBRILLATION Status: Chronic Qualifiers: Atrial fibrillation type: paroxysmal Qualified Code(s): I48.0 - Paroxysmal atrial fibrillation Comment: currently in NSR, on Amiodarone (6) Diabetes mellitus, insulin dependent (IDDM), controlled Code(s): E11.9 - TYPE 2 DIABETES MELLITUS WITHOUT COMPLICATIONS; Z79.4 - NURSE QUALITY (CURRENT) USE OF 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 - Discharge Encounter end time: 12:10
[2018-09-28] MEDS ORDERED: Pancrelipase DR 12000 1 CAP FS PRN (17:28)
[2018-09-28] MEDS ORDERED: Sodium Bicarbonate Tab 325 MG TAB PER TUBE PRN (17:28)
[2018-09-28] MEDS: HumaLOG 300 UNITS/3 ML VIAL SC PRN ×2 (17:29→22:16)
[2018-09-28] MEDS: Enoxaparin Sodium 40 MG/0.4 ML SYRINGE SC SCH (20:35)
[2018-09-29] MEDS: Dexamethasone 4 mg/ml Vial SLOW IVP SCH ×2 (00:21→05:02)
[2018-09-29] MEDS: Piperacillin/Tazobactam 3.375 GM in Sodium Chloride 0.9% 100 ML IVPB SCH ×4 (02:55→20:05)
[2018-09-29] MEDS: Propofol 1,000 MG/100 ML VIAL IV PRN ×2 (02:56→09:41)
[2018-09-29] MEDS: Sodium Chloride 0.9% 1,000 ML IV SCH (02:57)
[2018-09-29] MEDS: fentaNYL Citrate/PF 2,000 MCG in Sodium Chloride 0.9% 60 ML IV SCH (03:00)
[2018-09-29] MEDS: HumaLOG 300 UNITS/3 ML VIAL SC PRN ×4 (04:06→23:18)
[2018-09-29 04:30] LABS: ALT (SGPT) 12 U/L (8-55); AST (SGOT) 19 U/L (5-34); Albumin 2.3 g/dL (3.4-4.8); Alkaline Phosphatase 64 U/L (40-150); Anion Gap 11 mmol/L (10-20); BUN (Urea Nitrogen) 33 mg/dL (8.4-25.7); Bilirubin, Total 0.3 mg/dL (0.2-1.2); Calc. Creatinine Clearance 115 mL/min (70-130); Calcium 7.9 mg/dL (7.8-10.44); Carbon Dioxide 23 mmol/L (23-31); Chloride 112 mmol/L (98-107); Estimated GFR-MDRD 80; Globulin 3.2 g/dL (2.4-3.5); Glucose 242 mg/dL (83-110); Potassium 4.3 mmol/L (3.5-5.1); Protein, Total 5.5 g/dL (5.8-8.1); Sodium 142 mmol/L (136-145)
[2018-09-29 05:04] LABS: Band 1 % (5-11); Hypochromia SLIGHT = 6-15 cells (100X) (0-5/hpf); Lymphocytes 1 % (21-51); MDiff Complete? YES; Mean Corpuscular HGB CONC 29.8 g/dL (32.0-36.0); Mean Corpuscular Hemoglobin 26.9 pg (27.0-31.0); Mean Corpuscular Volume 90.2 fL (78.0-98.0); Mean Platelet Volume 7.4 fL (7.4-10.4); Neutrophil 98 % (42-75); Platelet Count 433 thou/uL (130-400); Platelet Morphology Comment Appears Increased; RBC Distribution Width 14.6 % (11.5-14.5); Red Blood Cell (RBC) Count 3.34 mill/uL (4.70-6.10); White Blood Cell (WBC) Count 16.7 thou/uL (4.8-10.8)
--- NOTE | 2018-09-29 07:07 | RAD ---
SINGLE VIEW CHEST: HISTORY: Ventilated patient with respiratory failure. COMPARISON: 09/28/2018 FINDINGS: A single view of the chest shows an enlarged but stable cardiomediastinal silhouette. Lines and tube s are unchanged in position. Stable increased interstitial markings are present. Superimposed air s pace opacities are also present. IMPRESSION: Stable examination. POS: [facility]
[2018-09-29] MEDS ORDERED: Furosemide 40 MG/4 ML VIAL SLOW IVP SCH (07:45)
--- NOTE | 2018-09-29 08:02 | PRG ---
DATE OF SERVICE: 09/29/2018 TIME SPENT: 35 minutes of critical care time. SUBJECTIVE: The patient remains intubated on mechanical ventilation. He will wake up and follow commands. OBJECTIVE: VITAL SIGNS: On exam, his temperature is 97.5, pulse 77, blood pressure 131/53, O2 sat 95% on 40% oxygen, on propofol and fentanyl drips. Intake for 24 hours 3305, output 1275. Weight 276 pounds. HEENT: Unremarkable. NECK: No JVD. LUNGS: Expiratory crackles bilaterally. CARDIAC: S1 and S2, regular. ABDOMEN: Soft, nontender, and nondistended. EXTREMITIES: No clubbing, cyanosis, or edema. LABORATORY DATA: Sodium 142, potassium 4.3, chloride 112, CO2 of 23, BUN 33, creatinine 0.9, and glucose 242. White blood cell count 16.7, hematocrit 30.2, and platelet count 433. His pleural fluid is growing alpha-hemolytic strep. ASSESSMENT: 1. Empyema from alpha-hemolytic strep. 2. Status post decortication, right empyema. 3. Respiratory failure, requiring mechanical ventilation. 4. Idiopathic pulmonary fibrosis. PLAN: 1. CPAP trial if tolerates, then extubate. 2. Continue IV antibiotics. 3. I will go ahead and stop the Decadron. Job ID: [id number]
[2018-09-29 08:11] LABS: Actual Bicarbonate (HCO3a) 23.5 mEq/L (22-28); Base Excess (BEa) -2.9 mEq/L (-2.0 to +3.0); CO2 Tension 47.9 mmHg (35.0-45.0); Hemoglobin (Hb) 10.5 g/dL (14.0-18.0); O2 Tension (PaO2) 74.3 mmHg (> 70.0); pH, Arterial 7.31 (7.35-7.45)
[2018-09-29 08:12] LABS: ALV-art Gradient 151.025 (0-20); Calcium, Ionized 1.12 mmol/L (1.12-1.30); Potassium - ABG Lab 4.34 mmol/L (3.70-5.30); Puncture Site LRA
--- NOTE | 2018-09-29 09:56 | PDOC.PN ---
- Subjective Encounter Start Date: 09/29/18 Encounter Start Time: 11:10 -: non-verbal Subjective: Patient unsuccessfully weaned off vent this AM, plan to try again in -: afternoon. No changes. - Objective Resuscitation Status - Order Detail: 09/26/18 19:24 Resuscitation Status Routine Resuscitation Status: FULL: Full Resuscitation MAR Reviewed: Yes Vital Signs & Weight: Vital Signs (12 hours) Temp Pulse Resp BP Pulse Ox 09/29/18 08:00 32 H 93 L 09/29/18 07:00 98.0 F 09/29/18 06:49 71 131/53 L 09/29/18 06:48 71 18 95 09/29/18 06:00 18 09/29/18 04:00 22 H 09/29/18 02:26 74 18 98 09/29/18 02:00 18 09/29/18 00:00 18 09/28/18 22:22 77 18 96 09/28/18 22:00 18 Weight Admit Weight 273 lb Weight 276 lb 7.355 oz Most Recent Monitor Data Heart Rate from ECG 85 NIBP 129/64 NIBP BP-Mean 85 Respiration from ECG 20 SpO2 94 I&O: 09/28/18 09/29/18 09/30/18 06:59 06:59 06:59 Intake Total 2296 3303.5 Output Total 890 1275 185 Balance 1406 2028.5 -185 Result Diagrams: 09/29/18 03:55 09/29/18 03:55 Additional Labs: Accuchecks 09/29/18 09/28/18 09/28/18 04:02 22:09 17:26 POC Glucose 229 H 201 H 157 H 09/28/18 10:03 POC Glucose 141 H Phys Exam - Physical Examination HEENT: moist MMs Respiratory: no wheezing, no rales, no rhonchi Cardiovascular: RRR Gastrointestinal: soft, positive bowel sounds Musculoskeletal: no edema, pulses present Neurological: non-focal Deviation from normal: sedated on vent Dx/Plan (1) Empyema, right Code(s): J86.9 - PYOTHORAX WITHOUT FISTULA Status: Acute Comment: s/p decortication 09/[address] Barnett, growing alpha hemolytic streptococcus, on abx since 09/26/2018 (2) Acute respiratory failure with hypoxia Code(s): J96.01 - ACUTE RESPIRATORY FAILURE WITH HYPOXIA Status: Acute Comment: on mechanical ventilation (3) Sepsis Code(s): A41.9 - SEPSIS, UNSPECIFIED ORGANISM Status: Acute (4) Pulmonary fibrosis Code(s): J84.10 - PULMONARY FIBROSIS, UNSPECIFIED Status: Chronic (5) Atrial fibrillation Code(s): I48.91 - UNSPECIFIED ATRIAL FIBRILLATION Status: Chronic Qualifiers: Atrial fibrillation type: paroxysmal Qualified Code(s): I48.0 - Paroxysmal atrial fibrillation Comment: currently in NSR, on Amiodarone (6) Diabetes mellitus, insulin dependent (IDDM), controlled Code(s): E11.9 - TYPE 2 DIABETES MELLITUS WITHOUT COMPLICATIONS; Z79.4 - 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 - Discharge Day Encounter end time: 11:20
[2018-09-29] MEDS: Acetaminophen/Codeine 30-300mg Tablet PO PRN (15:07)
[2018-09-29] MEDS: Enoxaparin Sodium 40 MG/0.4 ML SYRINGE SC SCH (20:05)
[2018-09-30] MEDS: Piperacillin/Tazobactam 3.375 GM in Sodium Chloride 0.9% 100 ML IVPB SCH ×4 (02:11→20:05)
[2018-09-30 05:30] LABS: Band 5 % (5-11); Hemoglobin 10.2 g/dL (14.0-18.0); Lymphocytes 4 % (21-51); MDiff Complete? YES; Mean Corpuscular HGB CONC 30.2 g/dL (32.0-36.0); Mean Corpuscular Volume 89.3 fL (78.0-98.0); Mean Platelet Volume 7.6 fL (7.4-10.4); Metamyelocyte 1 % (0-0); Monocytes 2 % (0-10); Neutrophil 88 % (42-75); Platelet Count 500 thou/uL (130-400); Platelet Morphology Comment Appears Increased; RBC Distribution Width 14.7 % (11.5-14.5); Red Blood Cell (RBC) Count 3.76 mill/uL (4.70-6.10); White Blood Cell (WBC) Count 19.6 thou/uL (4.8-10.8)
[2018-09-30 05:45] LABS: ALT (SGPT) 16 U/L (8-55); AST (SGOT) 22 U/L (5-34); Albumin 2.7 g/dL (3.4-4.8); Alkaline Phosphatase 83 U/L (40-150); Anion Gap 12 mmol/L (10-20); BUN (Urea Nitrogen) 26 mg/dL (8.4-25.7); Bilirubin, Total 0.6 mg/dL (0.2-1.2); Calc. Creatinine Clearance 119 mL/min (70-130); Calcium 8.5 mg/dL (7.8-10.44); Carbon Dioxide 28 mmol/L (23-31); Chloride 108 mmol/L (98-107); Estimated GFR-MDRD 82; Globulin 3.6 g/dL (2.4-3.5); Glucose 192 mg/dL (83-110); Potassium 4.1 mmol/L (3.5-5.1); Protein, Total 6.3 g/dL (5.8-8.1); Sodium 144 mmol/L (136-145)
[2018-09-30] MEDS: HumaLOG 300 UNITS/3 ML VIAL SC PRN ×4 (05:51→20:05)
[2018-09-30] MEDS: Acetaminophen/Codeine 30-300mg Tablet PO PRN ×2 (06:26→18:21)
[2018-09-30] MEDS ORDERED: Furosemide 40 MG/4 ML VIAL SLOW IVP SCH (07:30)
--- NOTE | 2018-09-30 07:59 | PRG ---
DATE OF SERVICE: 09/30/2018 SUBJECTIVE: Today, Mr. Mejía is complaining of anxiety. Dr. Barnett took the patient's chest tubes out. This morning, he is sitting up in a chair. OBJECTIVE: VITAL SIGNS: On exam, his temperature is 99.2, pulse 113, blood pressure 127/77. A 24-hour intake 2013, output 3518. HEENT: Unremarkable. NECK: No JVD. No bruits. LUNGS: He has expiratory crackles at both bases. CARDIAC: S1, S2. Slightly tachycardic. ABDOMEN: Soft, obese, nontender. EXTREMITIES: Edematous. LABORATORY DATA: White blood cell count 19.6, hemoglobin 10, hematocrit 33.6, and platelet count 500. Sodium 141, potassium 4.1, chloride 108, CO2 of 28, BUN 26, creatinine 0.8, glucose 192. Chest x-ray shows bilateral interstitial changes. He had chest tubes on the right, which has since been removed. ASSESSMENT: 1. Right-sided empyema from alpha hemolytic strep. 2. Status post respiratory failure requiring mechanical ventilation. 3. Idiopathic pulmonary fibrosis. 4. Some component of pulmonary edema. PLAN: 1. Xanax as needed for anxiety. 2. One dose of furosemide today. 3. Leave on high-flow oxygen. 4. Leave in ICU today. Job ID: [id number]
--- NOTE | 2018-09-30 08:20 | RAD ---
CHEST ONE VIEW: HISTORY: Ventilated patient. Respiratory distress. COMPARISON: 09/29/2018 FINDINGS: Interval removal of endotracheal and nasogastric tube. Two right-sided chest tubes and a right-sided central venous catheter are redemonstrated. Slightly worsening opacification in the lung parenchyma . Pneumothorax is not appreciated. Stable cardiac silhouette with atherosclerosis. IMPRESSION: Slightly worsening opacification in the lung parenchyma. POS: [facility]
[2018-09-30] MEDS: ALPRAZolam 0.25 MG TAB PO PRN ×3 (08:21→21:11)
--- NOTE | 2018-09-30 09:45 | PDOC.PN ---
- Subjective Encounter Start Date: 09/30/18 Encounter Start Time: 11:50 Subjective: Patient off the vent, still very weak and some SOB. No pain. - Objective Resuscitation Status - Order Detail: 09/26/18 19:24 Resuscitation Status Routine Resuscitation Status: FULL: Full Resuscitation MAR Reviewed: Yes Vital Signs & Weight: Vital Signs (12 hours) Temp Pulse Resp Pulse Ox 09/30/18 08:00 97.8 F 09/30/18 07:36 95 09/30/18 06:36 96 09/30/18 06:35 106 H 28 H 96 09/30/18 03:00 99.2 F 09/30/18 02:12 105 H 24 H 94 L 09/29/18 23:00 98.8 F 09/29/18 21:47 98 25 H 94 L Weight Admit Weight 273 lb Weight 275 lb 8.257 oz Most Recent Monitor Data Heart Rate from ECG 106 NIBP 146/74 NIBP BP-Mean 98 Respiration from ECG 24 SpO2 84 I&O: 09/29/18 09/30/18 10/01/18 06:59 06:59 06:59 Intake Total 3303.5 2013 240 Output Total 1275 3580 155 Balance 2028.5 -1567 85 Result Diagrams: 09/30/18 05:15 09/30/18 05:15 Additional Labs: Accuchecks 09/29/18 09/29/18 09/29/18 23:18 18:11 12:48 POC Glucose 215 H 186 H 263 H Phys Exam - Physical Examination Constitutional: NAD HEENT: moist MMs Respiratory: no wheezing, no rales scattered rhonchi, mild increase WOB and tachypnea, sats 90% on high flow O Cardiovascular: no significant murmur tachycardia, regular Gastrointestinal: soft, non-tender, positive bowel sounds Neurological: non-focal, moves all 4 limbs Psychiatric: normal affect, A&O x 3 Dx/Plan (1) Empyema, right Code(s): J86.9 - PYOTHORAX WITHOUT FISTULA Status: Acute Comment: s/p decortication 09/[address] Barnett, growing alpha hemolytic streptococcus, on abx since 09/26/2018 (2) Acute respiratory failure with hypoxia Code(s): J96.01 - ACUTE RESPIRATORY FAILURE WITH HYPOXIA Status: Acute Comment: extubated on high flow O2 (3) Sepsis Code(s): A41.9 - SEPSIS, UNSPECIFIED ORGANISM Status: Acute Comment: still with significant leukocytosis (4) Pulmonary fibrosis Code(s): J84.10 - PULMONARY FIBROSIS, UNSPECIFIED Status: Chronic (5) Atrial fibrillation Code(s): I48.91 - UNSPECIFIED ATRIAL FIBRILLATION Status: Chronic Qualifiers: Atrial fibrillation type: paroxysmal Qualified Code(s): I48.0 - Paroxysmal atrial fibrillation Comment: currently in NSR, on Amiodarone (6) Diabetes mellitus, insulin dependent (IDDM), controlled Code(s): E11.9 - TYPE 2 DIABETES MELLITUS WITHOUT COMPLICATIONS; Z79.4 - 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 - Discharge Day Encounter end time: 12:00
[2018-09-30] MEDS: Enoxaparin Sodium 40 MG/0.4 ML SYRINGE SC SCH (20:05)
[2018-10-01] MEDS ORDERED: Benzocaine 20% Spray 60 ML CAN ONE (01:00)
[2018-10-01] MEDS: Piperacillin/Tazobactam 3.375 GM in Sodium Chloride 0.9% 100 ML IVPB SCH ×4 (02:03→20:01)
[2018-10-01 02:21] LABS: Actual Bicarbonate (HCO3a) 33.1 mEq/L (22-28); Base Excess (BEa) 4.7 mEq/L (-2.0 to +3.0); Calcium, Ionized 1.13 mmol/L (1.12-1.30); Carboxyhemoglobin (COHb) 1.3 gm% (0.0-3.0); Hemoglobin (Hb) 10.9 g/dL (14.0-18.0); Potassium - ABG Lab 4.35 mmol/L (3.70-5.30); pH, Arterial 7.28 (7.35-7.45)
[2018-10-01 02:23] LABS: CO2 Tension 71.5 mmHg (35.0-45.0); Puncture Site RRA
[2018-10-01 02:24] LABS: ALV-art Gradient 281.425 (0-20)
[2018-10-01 03:24] LABS: ALT (SGPT) 16 U/L (8-55); AST (SGOT) 24 U/L (5-34); Albumin 2.5 g/dL (3.4-4.8); Alkaline Phosphatase 74 U/L (40-150); Anion Gap 11 mmol/L (10-20); BUN (Urea Nitrogen) 23 mg/dL (8.4-25.7); Bilirubin, Total 0.6 mg/dL (0.2-1.2); Calc. Creatinine Clearance 115 mL/min (70-130); Calcium 8.4 mg/dL (7.8-10.44); Carbon Dioxide 32 mmol/L (23-31); Chloride 107 mmol/L (98-107); Estimated GFR-MDRD 79; Globulin 3.5 g/dL (2.4-3.5); Glucose 203 mg/dL (83-110); Potassium 4.5 mmol/L (3.5-5.1); Sodium 145 mmol/L (136-145)
[2018-10-01 03:28] LABS: Hemoglobin 10.1 g/dL (14.0-18.0); Hypochromia SLIGHT = 6-15 cells (100X) (0-5/hpf); Lymphocytes 3 % (21-51); MDiff Complete? YES; Mean Corpuscular HGB CONC 29.5 g/dL (32.0-36.0); Mean Corpuscular Hemoglobin 26.9 pg (27.0-31.0); Mean Platelet Volume 7.4 fL (7.4-10.4); Monocytes 5 % (0-10); Neutrophil 92 % (42-75); Platelet Count 389 thou/uL (130-400); Platelet Morphology Comment Appears Adequate; RBC Distribution Width 14.7 % (11.5-14.5); Red Blood Cell (RBC) Count 3.74 mill/uL (4.70-6.10); White Blood Cell (WBC) Count 14.9 thou/uL (4.8-10.8)
[2018-10-01] MEDS ORDERED: Midazolam HCl 2 mg/2 ml Vial ONE (03:30)
[2018-10-01] MEDS ORDERED: DOBUTamine 500 mg/250 ml 0 ML ONE (03:44)
[2018-10-01] MEDS ORDERED: Propofol 1,000 MG/100 ML VIAL IV ONE (03:44)
[2018-10-01] MEDS ORDERED: Ventilator Sedation Protocol 1 EACH FS ONE (03:59)
[2018-10-01 04:00] LABS: Actual Bicarbonate (HCO3a) 32.9 mEq/L (22-28); Base Excess (BEa) 4.8 mEq/L (-2.0 to +3.0); Calcium, Ionized 1.11 mmol/L (1.12-1.30); Carboxyhemoglobin (COHb) 1.3 gm% (0.0-3.0); Hemoglobin (Hb) 10.6 g/dL (14.0-18.0); O2 Tension (PaO2) 102.7 mmHg (> 70.0); Potassium - ABG Lab 4.34 mmol/L (3.70-5.30); pH, Arterial 7.29 (7.35-7.45)
[2018-10-01] MEDS ORDERED: Propofol BOLUS 1,000 MG/100 ML VIAL IV PRN (04:01)
[2018-10-01] MEDS ORDERED: DISCONTINUE PREVIOUS NARCOTIC PAIN MEDICATIONS AND BENZODIAZEPINES FS SCH (04:01)
[2018-10-01] MEDS ORDERED: Lorazepam 2 MG/ML VIAL SLOW IVP PRN (04:01)
[2018-10-01] MEDS ORDERED: Fentanyl BOLUS 250 ML IVPB PRN (04:01)
[2018-10-01] MEDS ORDERED: fentaNYL Citrate/PF 2,000 MCG in Sodium Chloride 0.9% 60 ML IV SCH (04:01)
[2018-10-01] MEDS ORDERED: Morphine 2 MG/ML SYRINGE SLOW IVP PRN (04:01)
[2018-10-01 04:03] LABS: CO2 Tension 70.2 mmHg (35.0-45.0)
[2018-10-01 04:04] LABS: Puncture Site RRA
[2018-10-01] MEDS: HumaLOG 300 UNITS/3 ML VIAL SC PRN ×3 (05:27→20:06)
[2018-10-01 06:54] LABS: Actual Bicarbonate (HCO3a) 26.6 mEq/L (22-28); Base Excess (BEa) 3.3 mEq/L (-2.0 to +3.0); CO2 Tension 35.2 mmHg (35.0-45.0); Calcium, Ionized 1.13 mmol/L (1.12-1.30); Carboxyhemoglobin (COHb) 1.3 gm% (0.0-3.0); Hemoglobin (Hb) 9.7 g/dL (14.0-18.0); O2 Tension (PaO2) 222.3 mmHg (> 70.0); Potassium - ABG Lab 4.29 mmol/L (3.70-5.30)
[2018-10-01 06:56] LABS: Puncture Site RBA
--- NOTE | 2018-10-01 07:52 | PRG ---
DATE OF SERVICE: 10/01/2018 TIME SPENT: 35 minutes of critical care time. SUBJECTIVE: The patient remains intubated, on mechanical ventilation after decompensating last night and being intubated by Dr. Savage. He is currently heavily sedated. OBJECTIVE: VITAL SIGNS: The temperature is 99.7, pulse 90, and blood pressure 128/62. A 24-hour intake 1328, output 3050. HEENT: Unremarkable. NECK: No JVD. LUNGS: Inspiratory crackles bilaterally. CARDIAC: S1 and S2, regular. ABDOMEN: Soft, nontender. EXTREMITIES: Trace edema. LABORATORY DATA: Sodium 145, potassium 4.5, chloride 107, CO2 of 32, BUN 23, creatinine 0.9, and glucose 203. White blood cell count 14.9, hematocrit 34.1, and platelet count 389. PH of 7.50, pCO2 of 35, pO2 of 222 on SIMV rate 24, tidal volume of 500, PEEP 10, pressure support 10, and FiO2 of 90%. Earlier, his blood gas have been a pH of 7.28, pCO2 of 71, and pO2 of 57. His chest x-ray shows diffuse bilateral infiltrates that have worsened. ASSESSMENT: 1. Acute respiratory failure, requiring mechanical ventilation. 2. Acute respiratory distress syndrome. 3. Recent right-sided empyema. 4. Idiopathic pulmonary fibrosis. PLAN: This is a huge setback for the patient. I am not sure what the reason for decompensation was, but he appears to have developed acute respiratory distress syndrome. I doubt this is overt pulmonary edema as he has been diuresed significantly over the last 2 days. I will go ahead and check an echocardiogram. I have switched him over to bilevel ventilation as his lungs are stiff and I want to limit his peak inspiratory pressures. I will go ahead and add steroids as rescue treatment for ARDS. He is on Zosyn. I do not see a reason to extend the antibiotic coverage beyond that at this time, but that decision was to be reconsidered on daily basis. Job ID: [id number]
--- NOTE | 2018-10-01 08:20 | RAD ---
AP VIEW CHEST: HISTORY: Empyema status post thoracotomy. FINDINGS: AP view chest is obtained on 10/01/2018. Comparison is made to a previous exam from 09/30/2018. AP view chest demonstrates again a right subclavian central line seen, distal tip overlying the right atrium. There has been removal of the right-sided chest tubes. There is elevation of the right hemidiaphragm. Bilateral interstitial and airspace opacities again seen not significantly changed since the previous exam from 1 day earlier. No evidence of right-sided pneumothorax seen. IMPRESSION: Removal of 2 right-sided chest tubes. POS: [facility]
--- NOTE | 2018-10-01 09:57 | PDOC.PN ---
- Subjective Encounter Start Date: 10/01/18 Encounter Start Time: 11:20 -: non-verbal Subjective: Patient with respiratory distress this AM, had to be reintubated - Objective Resuscitation Status - Order Detail: 09/26/18 19:24 Resuscitation Status Routine Resuscitation Status: FULL: Full Resuscitation MAR Reviewed: Yes Vital Signs & Weight: Vital Signs (12 hours) Temp Pulse Resp BP Pulse Ox 10/01/18 08:00 26 H 10/01/18 07:26 92 117/59 L 10/01/18 07:00 99.7 F H 10/01/18 06:00 24 H 10/01/18 04:00 24 H 100 10/01/18 03:57 100 122/49 L 10/01/18 03:31 25 H 10/01/18 03:00 98.3 F 10/01/18 02:05 118 H 28 H 91 L 09/30/18 23:00 98.9 F 09/30/18 22:08 120 H 27 H 94 L Weight Admit Weight 273 lb Weight 276 lb 14.409 oz Most Recent Monitor Data Heart Rate from ECG 96 NIBP 127/65 NIBP BP-Mean 85 Respiration from ECG 31 SpO2 100 I&O: 09/30/18 10/01/18 10/02/18 06:59 06:59 06:59 Intake Total 2012 1328 100 Output Total 3580 3050 140 [facility] -1567 -1722 -40 Result Diagrams: 10/01/18 02:43 10/01/18 02:43 Additional Labs: Accuchecks 10/01/18 09/30/18 09/30/18 05:25 20:06 16:14 POC Glucose 190 H 253 H 250 H 09/30/18 12:11 POC Glucose 193 H Radiology Reviewed by me: Yes (Bilateral interstitial infiltrate worsening) Phys Exam - Physical Examination HEENT: moist MMs Respiratory: no wheezing, no rales, no rhonchi Cardiovascular: RRR, no significant murmur Gastrointestinal: soft, positive bowel sounds Neurological: non-focal Deviation from normal: sedated on the vent Dx/Plan (1) Empyema, right Code(s): J86.9 - PYOTHORAX WITHOUT FISTULA Status: Acute Comment: s/p decortication 09/[address] Barnett, growing alpha hemolytic streptococcus, on abx since 09/26/2018 (2) Acute respiratory failure with hypoxia Code(s): J96.01 - ACUTE RESPIRATORY FAILURE WITH HYPOXIA Status: Acute Comment: reintubated, ARDS (3) Sepsis Code(s): A41.9 - SEPSIS, UNSPECIFIED ORGANISM Status: Acute Comment: Leukocytosis improving inspite of respiratory setback, no change to antibiotics at this time (4) Pulmonary fibrosis Code(s): J84.10 - PULMONARY FIBROSIS, UNSPECIFIED Status: Chronic (5) Atrial fibrillation Code(s): I48.91 - UNSPECIFIED ATRIAL FIBRILLATION Status: Chronic Qualifiers: Atrial fibrillation type: paroxysmal Qualified Code(s): I48.0 - Paroxysmal atrial fibrillation Comment: currently in NSR, on Amiodarone (6) Diabetes mellitus, insulin dependent (IDDM), controlled Code(s): E11.9 - TYPE 2 DIABETES MELLITUS WITHOUT COMPLICATIONS; Z79.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 - Discharge Day Encounter end time: 11:30
[2018-10-01] MEDS: Propofol 1,000 MG/100 ML VIAL IV PRN ×4 (10:47→23:45)
--- NOTE | 2018-10-01 11:03 | PRG ---
DATE OF SERVICE: 10/01/2018 Followup blood gas post intubation. PH 7.28, pCO2 70, PO2 of 102. Pulmonary rate will be adjusted. Blood pressure stable at this time at 122/49 with a heart rate of 103. His oximetry is 100%. Critical care time 40 minutes, independent of procedures performed. Job ID: [id number] MTDD
--- NOTE | 2018-10-01 11:04 | OP ---
DATE OF PROCEDURE: 10/01/2018 HISTORY: Tashi Mejía was evaluated. He has apparently been having increasing respiratory distress overnight. He is unable to speak in a complete sentence when I saw him. Apparently severely claustrophobic, cannot wear BiPAP or noninvasive ventilator mask. He is developing signs of muscle fatigue, so I elected to recommend intubation. Blood pressure was stable. Heart rate was 114, blood pressure 147/73, respiratory rate was in the low 30s. Blood gas shows pH 7.28, CO2 71, PO2 57. Electrolytes; sodium 145, potassium 4.5, chloride 107, bicarb 32, BUN 23, creatinine 0.92. White count 14.9, hemoglobin 10.1, platelets 389. He had bilateral crackles. Heart, regular rhythm. Abdomen, soft. Extremities, without asymmetry or significant edema. IMPRESSION: 1. Impending respiratory failure. 2. Underlying pulmonary fibrosis. 3. Streptococcal empyema status post decortication. DESCRIPTION OF PROCEDURE: The bronchoscope was brought to the bedside. He is in the sitting position at about 30 degrees. A bite block was placed in his mouth. His throat was sprayed with Cetacaine spray. Bronchoscope was inserted into his mouth. Vocal cords were quickly and easily visualized and an endotracheal tube was advanced to a point above the sherry. He had bilateral equal breath sounds after intubation. He was then sedated with 2 mg of Versed. Sedation protocol will be started. He is connected to mechanical ventilation. Followup blood gas is pending. Job ID: [id number]
[2018-10-01] MEDS: methylPREDNISolone Sod Succ 40 MG VIAL IVP SCH ×3 (12:01→23:46)
[2018-10-01] MEDS: Enoxaparin Sodium 40 MG/0.4 ML SYRINGE SC SCH (20:01)
[2018-10-02] MEDS: Piperacillin/Tazobactam 3.375 GM in Sodium Chloride 0.9% 100 ML IVPB SCH ×4 (02:46→20:38)
[2018-10-02] MEDS: Propofol 1,000 MG/100 ML VIAL IV PRN ×6 (04:19→21:08)
[2018-10-02] MEDS: methylPREDNISolone Sod Succ 40 MG VIAL IVP SCH ×4 (05:16→23:24)
[2018-10-02] MEDS: HumaLOG 300 UNITS/3 ML VIAL SC PRN ×4 (05:17→20:47)
[2018-10-02 05:22] LABS: ALT (SGPT) 16 U/L (8-55); AST (SGOT) 16 U/L (5-34); Albumin 2.3 g/dL (3.4-4.8); Alkaline Phosphatase 72 U/L (40-150); Anion Gap 12 mmol/L (10-20); BUN (Urea Nitrogen) 30 mg/dL (8.4-25.7); Bilirubin, Total 0.3 mg/dL (0.2-1.2); Calc. Creatinine Clearance 99 mL/min (70-130); Calcium 8.4 mg/dL (7.8-10.44); Carbon Dioxide 31 mmol/L (23-31); Chloride 106 mmol/L (98-107); Estimated GFR-MDRD 66; Globulin 3.1 g/dL (2.4-3.5); Glucose 324 mg/dL (83-110); Potassium 4.9 mmol/L (3.5-5.1); Protein, Total 5.4 g/dL (5.8-8.1); Sodium 144 mmol/L (136-145)
[2018-10-02 05:23] LABS: Band 4 % (5-11); Hemoglobin 8.8 g/dL (14.0-18.0); Lymphocytes 3 % (21-51); MDiff Complete? YES; Mean Corpuscular HGB CONC 29.7 g/dL (32.0-36.0); Mean Corpuscular Hemoglobin 27.1 pg (27.0-31.0); Mean Corpuscular Volume 91.1 fL (78.0-98.0); Mean Platelet Volume 8.4 fL (7.4-10.4); Monocytes 2 % (0-10); Myelocyte 1 % (0-0); Neutrophil 90 % (42-75); Platelet Count 377 thou/uL (130-400); RBC Distribution Width 14.7 % (11.5-14.5); Red Blood Cell (RBC) Count 3.26 mill/uL (4.70-6.10); White Blood Cell (WBC) Count 14.3 thou/uL (4.8-10.8)
[2018-10-02 07:11] LABS: Actual Bicarbonate (HCO3a) 30.8 mEq/L (22-28); Base Excess (BEa) 4.9 mEq/L (-2.0 to +3.0); CO2 Tension 53.2 mmHg (35.0-45.0); Calcium, Ionized 1.16 mmol/L (1.12-1.30); Carboxyhemoglobin (COHb) 1.2 gm% (0.0-3.0); Hemoglobin (Hb) 9.5 g/dL (14.0-18.0); O2 Tension (PaO2) 73.3 mmHg (> 70.0); Potassium - ABG Lab 4.58 mmol/L (3.70-5.30); pH, Arterial 7.38 (7.35-7.45)
[2018-10-02 07:14] LABS: Puncture Site RRA
--- NOTE | 2018-10-02 08:01 | PRG ---
DATE OF SERVICE: 10/02/2018 TIME SPENT: 35 minutes of critical care time. SUBJECTIVE: Mr. Mejía remains intubated on mechanical ventilation. There have been no acute changes overnight. OBJECTIVE: VITAL SIGNS: His temperature is 98.2, pulse 82, blood pressure 120/57, currently sedated on propofol. Intake for 24 hours 1616, output 1415. HEENT: Pupils are reactive. Sclerae are anicteric. Oropharynx clear. NECK: No JVD. LUNGS: Inspiratory crackles bilaterally. CARDIAC: S1 and S2 regular without audible murmur. ABDOMEN: Soft, obese, nontender, and nondistended. EXTREMITIES: No clubbing, cyanosis, or edema. LABORATORY DATA: Sodium 144, potassium 4.9, chloride 106, CO2 of 31, BUN 30, creatinine 1.1, glucose 324, and albumin 2.3. A pH 7.38, pCO2 of 53, pO2 of 73, that is on bilevel rate of 16, high pressure 30, low pressure 10, FiO2 of 50%. White blood cell count 14.3, hematocrit 29.7, and platelet count 377. Chest x-ray does show some clearing compared to yesterday's film. ASSESSMENT: 1. Acute respiratory distress syndrome. 2. Diastolic cardiac dysfunction. 3. Acute respiratory failure requiring mechanical ventilation. 4. Status post right-sided empyema requiring decortication-alpha hemolytic strep was the source. 5. Idiopathic pulmonary fibrosis. PLAN: 1. I would like to leave the patient intubated over the weekend. At this point, he is not weanable. 2. Continue the high-dose steroids. 3. Add NPH insulin to cover hyperglycemia that has been induced by the steroids. 4. Start acetazolamide at a low dose over the next 3 days, as I do think he does have some component of fluid overload. 5. Continue enteral tube feeding. 6. Updated the patient's daughter and sister yesterday about the patient's condition. Job ID: [id number]
--- NOTE | 2018-10-02 08:56 | RAD ---
SINGLE VIEW OF THE CHEST: COMPARISON: 10/01/2018. HISTORY: Ventilated patient with respiratory failure. FINDINGS: A single view of the chest shows an enlarged but stable cardiomediastinal silhouette. Endotracheal t ube is seen with its tip between the clavicles. An NG tube is seen in the stomach. The central veno us catheter is unchanged in position. There are diffuse mixed alveolar/interstitial opacities throug hout the lungs. IMPRESSION: 1. Appropriate position of lines and tubes. 2. Multifocal infiltrates. POS: [facility]
[2018-10-02] MEDS: acetaZOLAMIDE Sodium 500 mg Vial IVP SCH ×2 (09:25→20:38)
[2018-10-02] MEDS: Sterile Water 10 ML VIAL FS PRN (09:46)
[2018-10-02] MEDS: NPH, Human Insulin Isophane 300 UNIT/3 ML VIAL SC SCH ×2 (10:37→20:47)
--- NOTE | 2018-10-02 16:41 | PDOC.PN ---
- Subjective Encounter Start Date: 10/02/18 Encounter Start Time: 16:40 Subjective: Admitted with SOB and back pain. found to have R lpneumonia and empyema. -: S/p decortication. still intubated. - Objective Resuscitation Status - Order Detail: 09/26/18 19:24 Resuscitation Status Routine Resuscitation Status: FULL: Full Resuscitation Vital Signs & Weight: Vital Signs (12 hours) Pulse Resp BP Pulse Ox 10/02/18 16:00 29 H 10/02/18 14:53 80 138/66 10/02/18 14:00 28 H 10/02/18 13:00 79 10/02/18 12:00 28 H 10/02/18 10:25 82 121/50 L 10/02/18 10:00 32 H 10/02/18 08:09 86 135/56 L 10/02/18 08:00 32 H 94 L 10/02/18 06:00 28 H Weight Admit Weight 273 lb Weight 276 lb 14.409 oz Most Recent Monitor Data Heart Rate from ECG 79 NIBP 133/55 NIBP BP-Mean 81 Respiration from ECG 29 SpO2 97 I&O: 10/01/18 10/02/18 10/03/18 06:59 06:59 06:59 Intake Total 1328 1616 Output Total 3050 1415 470 Balance -1722 201 -470 Result Diagrams: 10/02/18 04:15 10/02/18 04:15 Additional Labs: Accuchecks 10/02/18 10/02/18 10/02/18 16:07 09:30 05:18 POC Glucose 355 H 322 H 306 H 10/01/18 20:07 POC Glucose 250 H Phys Exam - Physical Examination Sedated. ET tube in place Ventilator transmitted sound noted. Cardiovascular: RRR, no significant murmur Gastrointestinal: positive bowel sounds Obese and soft Mild leg edema Sedated and unresponsive Dx/Plan (1) Right lower lobe pneumonia Code(s): J18.1 - LOBAR PNEUMONIA, UNSPECIFIED ORGANISM Status: Acute (2) Diastolic heart failure Code(s): I50.30 - UNSPECIFIED DIASTOLIC (CONGESTIVE) HEART FAILURE Status: Acute (3) Acute respiratory failure with hypoxia Code(s): J96.01 - ACUTE RESPIRATORY FAILURE WITH HYPOXIA Status: Acute Comment: reintubated, ARDS (4) Empyema, right Code(s): J86.9 - PYOTHORAX WITHOUT FISTULA Status: Acute Comment: s/p decortication 09/[address] Barnett, growing alpha hemolytic streptococcus, on abx since 09/26/2018 (5) Sepsis Code(s): A41.9 - SEPSIS, UNSPECIFIED ORGANISM Status: Acute Comment: Leukocytosis improving inspite of respiratory setback, no change to antibiotics at this time (6) Atrial fibrillation Code(s): I48.91 - UNSPECIFIED ATRIAL FIBRILLATION Status: Chronic Qualifiers: Atrial fibrillation type: paroxysmal Qualified Code(s): I48.0 - Paroxysmal atrial fibrillation Comment: currently in NSR, on Amiodarone (7) Diabetes mellitus, insulin dependent (IDDM), controlled Code(s): E11.9 - TYPE 2 DIABETES MELLITUS WITHOUT COMPLICATIONS; Z79.4 - HALFWAY (CURRENT) USE OF INSULIN Status: Chronic Comment: restart home Lantus when eating, currently blood sugars well controlled (8) Hyperlipidemia Code(s): E78.5 - HYPERLIPIDEMIA, UNSPECIFIED Status: Chronic (9) Hypertension Code(s): I10 - ESSENTIAL (PRIMARY) HYPERTENSION Status: Chronic (10) Pulmonary fibrosis Code(s): J84.10 - PULMONARY FIBROSIS, UNSPECIFIED Status: Chronic - Plan Continue Vent mgt as per Pulm/Critical care. -: monitor insulin therapy and adjust as needed to get adequate glycemic contr -: Continue antimicrobial -: Analgesic as needed -: care plan discussed with family * .
[2018-10-02] MEDS: Enoxaparin Sodium 40 MG/0.4 ML SYRINGE SC SCH (20:38)
[2018-10-03] MEDS: Propofol 1,000 MG/100 ML VIAL IV PRN ×8 (00:35→23:29)
[2018-10-03] MEDS: Piperacillin/Tazobactam 3.375 GM in Sodium Chloride 0.9% 100 ML IVPB SCH ×4 (03:47→19:39)
[2018-10-03] MEDS: methylPREDNISolone Sod Succ 40 MG VIAL IVP SCH ×4 (05:01→23:03)
[2018-10-03 05:35] LABS: ALT (SGPT) 13 U/L (8-55); AST (SGOT) 11 U/L (5-34); Albumin 2.3 g/dL (3.4-4.8); Alkaline Phosphatase 71 U/L (40-150); BUN (Urea Nitrogen) 36 mg/dL (8.4-25.7); Bilirubin, Total 0.2 mg/dL (0.2-1.2); Calc. Creatinine Clearance 90 mL/min (70-130); Calcium 8.3 mg/dL (7.8-10.44); Carbon Dioxide 31 mmol/L (23-31); Chloride 107 mmol/L (98-107); Estimated GFR-MDRD 60; Globulin 3.1 g/dL (2.4-3.5); Glucose 363 mg/dL (83-110); Potassium 4.9 mmol/L (3.5-5.1); Protein, Total 5.4 g/dL (5.8-8.1); Sodium 144 mmol/L (136-145)
[2018-10-03] MEDS: HumaLOG 300 UNITS/3 ML VIAL SC PRN ×4 (05:40→20:54)
[2018-10-03 05:41] LABS: Band 5 % (5-11); Hemoglobin 8.5 g/dL (14.0-18.0); Hypochromia SLIGHT = 6-15 cells (100X) (0-5/hpf); Lymphocytes 2 % (21-51); MDiff Complete? YES; Mean Corpuscular HGB CONC 29.4 g/dL (32.0-36.0); Mean Corpuscular Hemoglobin 26.7 pg (27.0-31.0); Mean Corpuscular Volume 90.8 fL (78.0-98.0); Mean Platelet Volume 8.8 fL (7.4-10.4); Monocytes 2 % (0-10); Neutrophil 91 % (42-75); Platelet Count 450 thou/uL (130-400); Platelet Morphology Comment Appears Increased; RBC Distribution Width 14.8 % (11.5-14.5); Red Blood Cell (RBC) Count 3.18 mill/uL (4.70-6.10); White Blood Cell (WBC) Count 17.4 thou/uL (4.8-10.8)
[2018-10-03 05:56] LABS: Anion Gap 11 mmol/L (10-20)
[2018-10-03 07:03] LABS: Actual Bicarbonate (HCO3a) 31.1 mEq/L (22-28); Base Excess (BEa) 5.5 mEq/L (-2.0 to +3.0); CO2 Tension 51.9 mmHg (35.0-45.0); Calcium, Ionized 1.17 mmol/L (1.12-1.30); Carboxyhemoglobin (COHb) 0.8 gm% (0.0-3.0); Hemoglobin (Hb) 8.7 g/dL (14.0-18.0); O2 Tension (PaO2) 87.6 mmHg (> 70.0); Potassium - ABG Lab 4.63 mmol/L (3.70-5.30)
[2018-10-03 07:12] LABS: Puncture Site RR
[2018-10-03 07:13] LABS: ALV-art Gradient 204.025 (0-20)
--- NOTE | 2018-10-03 07:53 | RAD ---
CHEST 1 VIEW: Date: 10/03/18 HISTORY: Dyspnea. Follow-up. COMPARISON: 10/02/18. FINDINGS: Cardiac silhouette remains magnified and predominantly obscured by dense alveolar infiltrate througho ut each lung, more on the left than the right. Mediastinum is midline. Lines and tubes are unchanged in position. No evidence of pneumothorax. IMPRESSION: Pulmonary edema, multifocal infiltrates, and other findings are stable. POS: [facility]
[2018-10-03] MEDS: acetaZOLAMIDE Sodium 500 mg Vial IVP SCH ×2 (09:50→19:38)
[2018-10-03] MEDS: NPH, Human Insulin Isophane 300 UNIT/3 ML VIAL SC SCH ×2 (10:01→20:53)
--- NOTE | 2018-10-03 11:06 | PRG ---
DATE OF SERVICE: 10/03/2018 SERVICE: Pulmonary Medicine. INTERVAL HISTORY: The patient is doing really well from respiratory standpoint. Breathing comfortably. He is on mechanical ventilation, requiring some sedation. Otherwise, there has been no interval change to his condition. He remains on bilevel. That being said, saturations are actually doing quite well. PHYSICAL EXAMINATION: VITAL SIGNS: Afebrile. Pulse 74, blood pressure 144/58, respirations 29, saturation 97% on 40% FiO2 and a PEEP of 10. HEENT: Normocephalic and atraumatic. Sclerae white. Conjunctivae pink. Oral mucosa is moist without lesions. LUNGS: Extensive crackles are noted. No prolonged expiratory phase or wheezing is appreciated. HEART: Normal rate and regular. ABDOMEN: Soft, nontender, nondistended. Bowel sounds are positive. MUSCULOSKELETAL: No cyanosis or clubbing. There is trace 1+ pitting in the bilateral lower extremities. NEUROLOGIC: Grossly nonfocal. LABORATORY DATA: WBC 17.4, hemoglobin 8.5, and slowly downtrending, platelets 450,000. Neutrophil count is 91% on top of 5% bands. PH 7.40, pCO2 52, PO2 88. A-a gradient is slowly improving. Creatinine 1.18 and roughly stable. BUN 36, and stable. Basic metabolic profile is otherwise unremarkable/stable. Thoracentesis fluid previously demonstrated a very severe exudate that was positive for Streptococcus intermedius. This was sensitive to Rocephin, Levaquin, and vancomycin. BAL is growing presumptive Ada albicans from the 25th. IMAGING: Echocardiogram demonstrates normal ejection fraction with diastolic dysfunction. Trace valvular abnormalities are noted. Chest x-ray demonstrates findings consistent with volume overload. Endotracheal tube terminates in a very good position. There are low lung volumes. Right subclavian central venous catheter terminates in the right atrium. There is a possible left-sided pleural effusion noted. ASSESSMENT: 1. Acute on chronic hypoxic respiratory failure. 2. Empyema secondary to Streptococcus, status post decortication, postoperative day #5. 3. Acute on chronic diastolic heart failure. 4. Idiopathic pulmonary fibrosis. 5. Acute respiratory distress syndrome. DISCUSSION AND PLAN: We will continue to wean oxygen away as tolerated. The patient is a touch volume overloaded, so I agree with continuing efforts at diuresing the patient to euvolemia. Other supportive measures will be continued including antibiotics. I will add a 7-day course of antifungal coverage given that we found some Ada in the lungs. Pulmonary/Critical Care will continue to follow along. CRITICAL CARE TIME: 30 minutes. Job ID: [id number]
[2018-10-03] MEDS: Micafungin 150 MG in Sodium Chloride 0.9% 100 ML IVPB SCH (11:36)
--- NOTE | 2018-10-03 15:02 | PDOC.PN ---
- Subjective Encounter Start Date: 10/03/18 Encounter Start Time: 15:01 -: non-verbal Subjective: Sedated and mecahnically ventilated. -: No event overnight - Objective Resuscitation Status - Order Detail: 09/26/18 19:24 Resuscitation Status Routine Resuscitation Status: FULL: Full Resuscitation Vital Signs & Weight: Vital Signs (12 hours) Pulse Pulse Pulse Resp BP BP BP 10/03/18 14:09 77 32 H 10/03/18 14:00 29 H 10/03/18 13:03 76 140/55 L 10/03/18 12:00 29 H 10/03/18 10:22 74 144/58 H 10/03/18 10:00 32 H 10/03/18 09:37 73 132/55 L 10/03/18 09:34 71 74 134/55 L 132/56 L 10/03/18 08:00 28 H 10/03/18 07:47 10/03/18 07:37 67 131/60 10/03/18 06:00 29 H 10/03/18 04:00 32 H Pulse Ox Pulse Ox Pulse Ox 10/03/18 14:09 94 L 10/03/18 14:00 10/03/18 13:03 10/03/18 12:00 10/03/18 10:22 10/03/18 10:00 10/03/18 09:37 10/03/18 09:34 98 97 10/03/18 08:00 10/03/18 07:47 99 10/03/18 07:37 10/03/18 06:00 10/03/18 04:00 Weight Admit Weight 273 lb Weight 277 lb 1.937 oz Most Recent Monitor Data Heart Rate from ECG 76 NIBP 147/57 NIBP BP-Mean 87 Respiration from ECG 32 SpO2 94 I&O: 10/02/18 10/03/18 10/04/18 06:59 06:59 06:59 Intake Total 1616 2284 100 Output Total 1415 1455 580 Balance 201 829 -480 Result Diagrams: 10/03/18 04:30 10/03/18 03:30 Additional Labs: Accuchecks 10/03/18 10/02/18 10/02/18 09:49 20:48 16:07 POC Glucose 345 H 333 H 355 H Phys Exam - Physical Examination obese male in no distress. sedated ET tube in place Neck: no JVD Ventilator transmited sound noted. Cardiovascular: RRR Gastrointestinal: no distention, positive bowel sounds obese mild bilateral ankle and leg edema sedated. Dx/Plan (1) Right lower lobe pneumonia Code(s): J18.1 - LOBAR PNEUMONIA, UNSPECIFIED ORGANISM Status: Acute (2) Diastolic heart failure Code(s): I50.30 - UNSPECIFIED DIASTOLIC (CONGESTIVE) HEART FAILURE Status: Acute (3) Acute respiratory failure with hypoxia Code(s): J96.01 - ACUTE RESPIRATORY FAILURE WITH HYPOXIA Status: Acute Comment: reintubated, ARDS (4) Empyema, right Code(s): J86.9 - PYOTHORAX WITHOUT FISTULA Status: Acute Comment: s/p decortication 09/[address] Barnett, growing alpha hemolytic streptococcus, on abx since 09/26/2018 (5) Sepsis Code(s): A41.9 - SEPSIS, UNSPECIFIED ORGANISM Status: Acute Comment: Leukocytosis improving inspite of respiratory setback, no change to antibiotics at this time (6) Atrial fibrillation Code(s): I48.91 - UNSPECIFIED ATRIAL FIBRILLATION Status: Chronic Qualifiers: Atrial fibrillation type: paroxysmal Qualified Code(s): I48.0 - Paroxysmal atrial fibrillation Comment: currently in NSR, on Amiodarone (7) Diabetes mellitus, insulin dependent (IDDM), controlled Code(s): E11.9 - TYPE 2 DIABETES MELLITUS WITHOUT COMPLICATIONS; Z79.4 - [employer]SF[employer] (CURRENT) USE OF INSULIN Status: Chronic Comment: restart home Lantus when eating, currently blood sugars well controlled (8) Hyperlipidemia Code(s): E78.5 - HYPERLIPIDEMIA, UNSPECIFIED Status: Chronic Comment: Glycemic control inadequate. patient is on steroid. (9) Hypertension Code(s): I10 - ESSENTIAL (PRIMARY) HYPERTENSION Status: Chronic (10) Pulmonary fibrosis Code(s): J84.10 - PULMONARY FIBROSIS, UNSPECIFIED Status: Chronic - Plan Increase NPH to 30 bid -: Change to aggressive sliding scale inssulin. -: Continue current antibiotics. -: Mycafungin added due to evgeny growth on alveolar lavage -: Vent mgt as per Pulmonary. * .
[2018-10-03] MEDS: Enoxaparin Sodium 40 MG/0.4 ML SYRINGE SC SCH (19:38)
[2018-10-03] MEDS: Famotidine 20 MG TAB PO SCH (19:38)
[2018-10-03] MEDS: Amiodarone 200 MG TAB PO SCH (19:38)
[2018-10-03] MEDS: Metoprolol Tartrate 50 MG TAB PO SCH (19:39)
[2018-10-04] MEDS: Piperacillin/Tazobactam 3.375 GM in Sodium Chloride 0.9% 100 ML IVPB SCH ×4 (02:05→20:53)
[2018-10-04] MEDS: Propofol 1,000 MG/100 ML VIAL IV PRN ×6 (02:32→21:14)
[2018-10-04] MEDS: HumaLOG 300 UNITS/3 ML VIAL SC PRN ×4 (03:36→20:58)
[2018-10-04 04:11] LABS: Phosphorus 3.3 mg/dL (2.3-4.7)
[2018-10-04 04:12] LABS: Anion Gap 8 mmol/L (10-20); BUN (Urea Nitrogen) 41 mg/dL (8.4-25.7); Calc. Creatinine Clearance 92 mL/min (70-130); Calcium 8.2 mg/dL (7.8-10.44); Carbon Dioxide 32 mmol/L (23-31); Chloride 110 mmol/L (98-107); Estimated GFR-MDRD 61; Glucose 301 mg/dL (83-110); Magnesium 2.4 mg/dL (1.6-2.6); Sodium 145 mmol/L (136-145)
[2018-10-04] MEDS: Furosemide 40 MG/4 ML VIAL SLOW IVP SCH (05:22)
[2018-10-04] MEDS: methylPREDNISolone Sod Succ 40 MG VIAL IVP SCH ×4 (05:22→23:56)
[2018-10-04 05:29] LABS: Band 5 % (5-11); Hemoglobin 8.6 g/dL (14.0-18.0); Hypochromia SLIGHT = 6-15 cells (100X) (0-5/hpf); Lymphocytes 4 % (21-51); MDiff Complete? YES; Mean Corpuscular HGB CONC 29.7 g/dL (32.0-36.0); Mean Corpuscular Hemoglobin 26.7 pg (27.0-31.0); Mean Corpuscular Volume 89.8 fL (78.0-98.0); Mean Platelet Volume 8.1 fL (7.4-10.4); Monocytes 4 % (0-10); Neutrophil 87 % (42-75); Platelet Count 430 thou/uL (130-400); Platelet Morphology Comment Appears Increased; RBC Distribution Width 14.7 % (11.5-14.5); Red Blood Cell (RBC) Count 3.21 mill/uL (4.70-6.10); White Blood Cell (WBC) Count 12.7 thou/uL (4.8-10.8)
--- NOTE | 2018-10-04 07:16 | PDOC.PN ---
- Subjective Encounter Start Date: 10/04/18 Encounter Start Time: 07:14 Subjective: Seen still on life support - Objective Resuscitation Status - Order Detail: 09/26/18 19:24 Resuscitation Status Routine Resuscitation Status: FULL: Full Resuscitation Vital Signs & Weight: Vital Signs (12 hours) Pulse Resp BP Pulse Ox 10/04/18 07:08 63 139/63 10/04/18 06:00 29 H 10/04/18 04:00 26 H 10/04/18 02:49 62 10/04/18 02:48 62 29 H 98 10/04/18 02:00 32 H 10/04/18 00:00 31 H 10/03/18 22:26 70 27 H 98 10/03/18 22:00 29 H 10/03/18 20:00 27 H 10/03/18 19:25 97 Weight Admit Weight 273 lb Weight 276 lb 3.827 oz Most Recent Monitor Data Heart Rate from ECG 61 NIBP 145/68 NIBP BP-Mean 93 Respiration from ECG 29 SpO2 98 I&O: 10/03/18 10/04/18 10/05/18 06:59 06:59 06:59 Intake Total 2284 2495 Output Total 1455 1910 Balance 829 585 Result Diagrams: 10/04/18 03:42 10/04/18 03:42 Additional Labs: Accuchecks 10/04/18 10/03/18 10/03/18 03:36 20:54 16:00 POC Glucose 293 H 311 H 326 H 10/03/18 09:49 POC Glucose 345 H Phys Exam - Physical Examination Constitutional: NAD HEENT: PERRLA, moist MMs, sclera anicteric, TM's clear Neck: no nodes, no JVD, supple, full ROM Respiratory: no wheezing, no rales, no rhonchi vented sounds Cardiovascular: RRR, no significant murmur, no rub Gastrointestinal: soft, non-tender, no distention, positive bowel sounds Musculoskeletal: pulses present Dx/Plan (1) Acute respiratory failure with hypoxia Code(s): J96.01 - ACUTE RESPIRATORY FAILURE WITH HYPOXIA Status: Acute Comment: reintubated, ARDS (2) Diastolic heart failure Code(s): I50.30 - UNSPECIFIED DIASTOLIC (CONGESTIVE) HEART FAILURE Status: Acute (3) Empyema, right Code(s): J86.9 - PYOTHORAX WITHOUT FISTULA Status: Acute Comment: s/p decortication 09/[address] Barnett, growing alpha hemolytic streptococcus, on abx since 09/26/2018 (4) Right lower lobe pneumonia Code(s): J18.1 - LOBAR PNEUMONIA, UNSPECIFIED ORGANISM Status: Acute (5) Sepsis Code(s): A41.9 - SEPSIS, UNSPECIFIED ORGANISM Status: Acute Comment: Leukocytosis improving inspite of respiratory setback, no change to antibiotics at this time (6) Atrial fibrillation Code(s): I48.91 - UNSPECIFIED ATRIAL FIBRILLATION Status: Chronic Qualifiers: Atrial fibrillation type: paroxysmal Qualified Code(s): I48.0 - Paroxysmal atrial fibrillation Comment: currently in NSR, on Amiodarone (7) Diabetes mellitus, insulin dependent (IDDM), controlled Code(s): E11.9 - TYPE 2 DIABETES MELLITUS WITHOUT COMPLICATIONS; Z79.4 - FDC (CURRENT) USE OF INSULIN Status: Chronic Comment: restart home Lantus when eating, currently blood sugars well controlled (8) Hyperlipidemia Code(s): E78.5 - HYPERLIPIDEMIA, UNSPECIFIED Status: Chronic Comment: Glycemic control inadequate. patient is on steroid. - Plan mitchell catheter, respiratory therapy, DVT proph w/heparin Ventilatory management per pulmonary/critical care * .
--- NOTE | 2018-10-04 08:50 | RAD ---
CHEST 1 VIEW: Date: 10/04/18 HISTORY: Dyspnea. Follow-up. COMPARISON: 10/03/18. FINDINGS: Cardiac silhouette is magnified by projection. Pulmonary vasculature remains engorged. Widespread dylan und-glass opacity throughout each lung is similar in appearance to the previous exam. Mediastinum is midline. Lines and tubes appear unchanged in position. No evidence of pneumothorax. IMPRESSION: Pulmonary edema, multifocal infiltrates, and other findings are stable. POS: [facility]
[2018-10-04] MEDS: acetaZOLAMIDE Sodium 500 mg Vial IVP SCH ×2 (09:18→20:52)
[2018-10-04] MEDS: Metoprolol Tartrate 50 MG TAB PO SCH ×2 (09:19→20:53)
[2018-10-04] MEDS: Amiodarone 200 MG TAB PO SCH ×2 (09:19→20:52)
[2018-10-04] MEDS: Famotidine 20 MG TAB PO SCH ×2 (09:19→20:53)
[2018-10-04] MEDS: NPH, Human Insulin Isophane 300 UNIT/3 ML VIAL SC SCH ×2 (09:21→20:53)
[2018-10-04] MEDS: Micafungin 150 MG in Sodium Chloride 0.9% 100 ML IVPB SCH (11:39)
--- NOTE | 2018-10-04 12:40 | PRG ---
DATE OF SERVICE: 10/04/2018 SERVICE: Pulmonary Medicine. INTERVAL HISTORY: The patient is doing outstanding from respiratory standpoint. His oxygen requirements have actually improved dramatically. He is responding to the Lasix. Nursing reports no overnight events. The secretions are still copious. PHYSICAL EXAMINATION: VITAL SIGNS: Afebrile. Pulse 62, blood pressure 132/47, respirations 32, saturation 96% on 33% FiO2 and a PEEP of 7 now. HEENT: Normocephalic and atraumatic. Sclerae white. Conjunctivae pink. Oral mucosa is moist without lesions. LUNGS: Decent air entry. Crackles are present. There are extensive rhonchi. No wheezing. HEART: Normal rate and regular. ABDOMEN: Soft, nontender, nondistended. Bowel sounds are positive. MUSCULOSKELETAL: No cyanosis or clubbing. No pitting in the bilateral lower extremities. NEUROLOGIC: Grossly nonfocal. LABORATORY DATA: WBC 12.7, hemoglobin 8.6, platelets 430,000 and responding nicely. The neutrophil count is stable at 87% on top of 5% bands. Creatinine 1.16, BUN 41. Bicarb 32, chloride 110, sodium 145. Magnesium and phosphorus both fall within the normal limits. IMAGING: Chest x-ray demonstrates stable findings of pulmonary vascular congestion, interstitial edema, and likely bilateral pleural effusions. ET tube is about 1 cm above the level of the sherry. Enteric catheter courses below the level of the diaphragm. There is a right subclavian central venous catheter that terminates at the cavoatrial junction. ASSESSMENT: 1. Acute on chronic hypoxic respiratory failure. 2. Empyema secondary to Streptococcus, status post decortication, postop day #6. 3. Acute on chronic diastolic heart failure. 4. Idiopathic pulmonary fibrosis with acute exacerbation. 5. Adult respiratory distress syndrome. DISCUSSION AND PLAN: The patient is actually doing a little better. We will need to introduce some D5 water to prevent hypernatremia as we continue our efforts at diuresing him through time. We will continue our empiric antibiotic coverage. I will switch him over to pressure control ventilation off bilevel since he has had significant improvement in his oxygen requirements. Pulmonary/Critical Care will continue to follow. CRITICAL CARE TIME: 30 minutes. Job ID: [id number]
[2018-10-04] MEDS ORDERED: Furosemide 40 MG/4 ML VIAL SLOW IVP SCH (14:00)
[2018-10-04] MEDS: Sterile Water 10 ML VIAL FS PRN (20:52)
[2018-10-04] MEDS: Enoxaparin Sodium 40 MG/0.4 ML SYRINGE SC SCH (20:53)
[2018-10-05] MEDS: Propofol 1,000 MG/100 ML VIAL IV PRN ×7 (01:25→22:06)
[2018-10-05] MEDS: Piperacillin/Tazobactam 3.375 GM in Sodium Chloride 0.9% 100 ML IVPB SCH ×4 (03:11→20:27)
[2018-10-05] MEDS: HumaLOG 300 UNITS/3 ML VIAL SC PRN ×4 (05:03→20:31)
[2018-10-05 05:23] LABS: Anion Gap 10 mmol/L (10-20); BUN (Urea Nitrogen) 43 mg/dL (8.4-25.7); Calc. Creatinine Clearance 95 mL/min (70-130); Calcium 8.1 mg/dL (7.8-10.44); Carbon Dioxide 31 mmol/L (23-31); Chloride 105 mmol/L (98-107); Estimated GFR-MDRD 63; Glucose 294 mg/dL (83-110); Potassium 4.3 mmol/L (3.5-5.1); Sodium 142 mmol/L (136-145)
[2018-10-05 05:48] LABS: Hemoglobin 9.3 g/dL (14.0-18.0); Hypochromia SLIGHT = 6-15 cells (100X) (0-5/hpf); Lymphocytes 3 % (21-51); MDiff Complete? YES; Mean Corpuscular HGB CONC 30.3 g/dL (32.0-36.0); Mean Corpuscular Hemoglobin 26.9 pg (27.0-31.0); Mean Corpuscular Volume 88.8 fL (78.0-98.0); Mean Platelet Volume 8.3 fL (7.4-10.4); Monocytes 1 % (0-10); Neutrophil 96 % (42-75); Platelet Count 454 thou/uL (130-400); Platelet Morphology Comment Appears Increased; RBC Distribution Width 14.8 % (11.5-14.5); Red Blood Cell (RBC) Count 3.45 mill/uL (4.70-6.10); White Blood Cell (WBC) Count 13.7 thou/uL (4.8-10.8)
[2018-10-05] MEDS: Furosemide 40 MG/4 ML VIAL SLOW IVP SCH (06:10)
[2018-10-05] MEDS: methylPREDNISolone Sod Succ 40 MG VIAL IVP SCH ×3 (06:10→16:25)
[2018-10-05 07:17] LABS: CO2 Tension 58.6 mmHg (35.0-45.0); O2 Tension (PaO2) 75.5 mmHg (> 70.0); pH, Arterial 7.38 (7.35-7.45)
[2018-10-05 07:18] LABS: Actual Bicarbonate (HCO3a) 34.2 mEq/L (22-28); Base Excess (BEa) 7.9 mEq/L (-2.0 to +3.0); Calcium, Ionized 1.19 mmol/L (1.12-1.30); Carboxyhemoglobin (COHb) 1.5 gm% (0.0-3.0); Hemoglobin (Hb) 9.2 g/dL (14.0-18.0); Potassium - ABG Lab 4.45 mmol/L (3.70-5.30); Puncture Site LRA
--- NOTE | 2018-10-05 08:19 | PRG ---
DATE OF SERVICE: 10/05/2018 TIME SPENT: 35 minutes of critical care time. SUBJECTIVE: The patient remains intubated on mechanical ventilation. Has been really no significant progress over the weekend on weaning the patient. OBJECTIVE: VITAL SIGNS: On exam, temperature is 98.1 with no fever, pulse 58, and blood pressure 139/61. A 24-hour intake 3954, output 4140. Weight 276 pounds. GENERAL: He is heavily sedated. HEENT: Unremarkable. NECK: No JVD. LUNGS: Inspiratory crackles bilaterally. CARDIAC: S1 and S2, regular. ABDOMEN: Soft, nontender. EXTREMITIES: Edematous. LABORATORY DATA: Sodium 142, potassium 4.3, chloride 105, CO2 of 31, BUN 43, creatinine 1.1, and glucose 294. PH of 7.38, pCO2 of 58, pO2 of 75, that is on pressure control ventilation with FiO2 of 33%. Peak inspiratory pressure of 19 and PEEP of 7. White blood cell count 13.7, hematocrit 30.7, and platelet count 454. Chest x-ray shows no significant change. ASSESSMENT: 1. Status post decortication of a right-sided empyema. 2. Acute respiratory failure, requiring mechanical ventilation. 3. Idiopathic pulmonary fibrosis. 4. Hyperglycemia secondary to steroid use. 5. Chronic atrial fibrillation. PLAN: 1. I have adjusted the patient's ventilator settings. I do not think he is weanable at this point secondary to severe neuromuscular weakness. 2. Micafungin was started over the weekend because he had some Ada come from his bronchoscopy. 3. He continues on Zosyn at least 10 days. 4. I will stop the furosemide since he is becoming prerenal. Continue the acetazolamide for the time being as he has developed a metabolic alkalosis with compensatory respiratory acidosis. 5. Prognosis is quite poor. I will update the family when they arrive. Job ID: [id number]
--- NOTE | 2018-10-05 08:59 | PDOC.PN ---
- Subjective Encounter Start Date: 10/05/18 Encounter Start Time: 08:57 Subjective: intubated, sedated - Objective Resuscitation Status - Order Detail: 09/26/18 19:24 Resuscitation Status Routine Resuscitation Status: FULL: Full Resuscitation MAR Reviewed: Yes Vital Signs & Weight: Vital Signs (12 hours) Temp Pulse Resp BP Pulse Ox 10/05/18 07:48 29 H 95 10/05/18 07:00 97.9 F 10/05/18 06:55 59 L 116/44 L 10/05/18 06:52 56 L 20 97 10/05/18 06:00 27 H 10/05/18 04:00 99.4 F 28 H 10/05/18 03:19 57 L 10/05/18 03:18 57 L 33 H 96 10/05/18 03:00 27 H 10/05/18 02:00 28 H 10/05/18 00:00 98 F 29 H 10/04/18 22:04 61 27 H 96 10/04/18 22:00 26 H Weight Admit Weight 273 lb Weight 276 lb 7.355 oz Most Recent Monitor Data Heart Rate from ECG 57 NIBP 135/56 NIBP BP-Mean 82 Respiration from ECG 24 SpO2 98 I&O: 10/04/18 10/05/18 10/06/18 06:59 06:59 06:59 Intake Total 2495 3954 Output Total 1910 4140 820 Balance 325 -236 -820 Result Diagrams: 10/05/18 05:00 10/05/18 05:00 Additional Labs: Accuchecks 10/05/18 10/04/18 10/04/18 04:58 20:50 16:29 POC Glucose 265 H 298 H 317 H 10/04/18 09:58 POC Glucose 282 H Phys Exam - Physical Examination Neck: no JVD coarse BS with rales, rhocchi Cardiovascular: RRR, no significant murmur Gastrointestinal: soft, positive bowel sounds Musculoskeletal: no edema Dx/Plan (1) Acute respiratory failure with hypoxia Code(s): J96.01 - ACUTE RESPIRATORY FAILURE WITH HYPOXIA Status: Acute Comment: reintubated, ARDS (2) Empyema, right Code(s): J86.9 - PYOTHORAX WITHOUT FISTULA Status: Acute Comment: s/p decortication 09/[address] Barnett, growing alpha hemolytic streptococcus, on abx since 09/26/2018 (3) Right lower lobe pneumonia Code(s): J18.1 - LOBAR PNEUMONIA, UNSPECIFIED ORGANISM Status: Acute Qualifiers: Pneumonia type: due to unspecified organism Qualified Code(s): J18.1 - Lobar pneumonia, unspecified organism (4) Atrial fibrillation Code(s): I48.91 - UNSPECIFIED ATRIAL FIBRILLATION Status: Chronic Qualifiers: Atrial fibrillation type: paroxysmal Qualified Code(s): I48.0 - Paroxysmal atrial fibrillation Comment: currently in NSR, on Amiodarone (5) Diabetes mellitus, insulin dependent (IDDM), controlled Code(s): E11.9 - TYPE 2 DIABETES MELLITUS WITHOUT COMPLICATIONS; Z79.4 - MCFP (CURRENT) USE OF INSULIN Status: Chronic Comment: restart home Lantus when eating, currently blood sugars well controlled (6) Hyperlipidemia Code(s): E78.5 - HYPERLIPIDEMIA, UNSPECIFIED Status: Chronic Qualifiers: Hyperlipidemia type: unspecified Qualified Code(s): E78.5 - Hyperlipidemia , unspecified Comment: Glycemic control inadequate. patient is on steroid. (7) Hypertension Code(s): I10 - ESSENTIAL (PRIMARY) HYPERTENSION Status: Chronic Qualifiers: Hypertension type: essential hypertension Qualified Code(s): I10 - Essential (primary) hypertension (8) Pulmonary fibrosis Code(s): J84.10 - PULMONARY FIBROSIS, UNSPECIFIED Status: Chronic - Plan poor responce to tx, weaning from vent -: cont accu/ss/ LA insulin -: cont nebs, steroids, antibx -: discusss with boarding kennel or cattery operator * .
[2018-10-05] MEDS: acetaZOLAMIDE Sodium 500 mg Vial IVP SCH (09:04)
[2018-10-05] MEDS: Amiodarone 200 MG TAB PO SCH ×2 (09:05→20:26)
[2018-10-05] MEDS: Metoprolol Tartrate 50 MG TAB PO SCH ×2 (09:05→20:27)
[2018-10-05] MEDS: Famotidine 20 MG TAB PO SCH ×2 (09:05→20:26)
[2018-10-05] MEDS: NPH, Human Insulin Isophane 300 UNIT/3 ML VIAL SC SCH ×2 (09:06→20:28)
[2018-10-05] MEDS: Micafungin 150 MG in Sodium Chloride 0.9% 100 ML IVPB SCH (11:18)
[2018-10-05] MEDS: Enoxaparin Sodium 40 MG/0.4 ML SYRINGE SC SCH (20:27)
[2018-10-06] MEDS: methylPREDNISolone Sod Succ 40 MG VIAL IVP SCH ×4 (00:38→17:08)
[2018-10-06] MEDS: Propofol 1,000 MG/100 ML VIAL IV PRN ×4 (01:36→18:09)
[2018-10-06] MEDS: Piperacillin/Tazobactam 3.375 GM in Sodium Chloride 0.9% 100 ML IVPB SCH ×4 (02:27→20:30)
[2018-10-06] MEDS: HumaLOG 300 UNITS/3 ML VIAL SC PRN ×4 (05:01→20:39)
[2018-10-06 05:16] LABS: Anion Gap 10 mmol/L (10-20); BUN (Urea Nitrogen) 42 mg/dL (8.4-25.7); Calc. Creatinine Clearance 106 mL/min (70-130); Calcium 7.7 mg/dL (7.8-10.44); Carbon Dioxide 30 mmol/L (23-31); Chloride 104 mmol/L (98-107); Estimated GFR-MDRD 73; Glucose 271 mg/dL (83-110); Potassium 4.3 mmol/L (3.5-5.1); Sodium 140 mmol/L (136-145)
[2018-10-06 05:22] LABS: Band 2 % (5-11); Hemoglobin 9.2 g/dL (14.0-18.0); Lymphocytes 2 % (21-51); MDiff Complete? YES; Mean Corpuscular HGB CONC 31.1 g/dL (32.0-36.0); Mean Corpuscular Hemoglobin 27.1 pg (27.0-31.0); Mean Corpuscular Volume 87.2 fL (78.0-98.0); Mean Platelet Volume 8.7 fL (7.4-10.4); Monocytes 2 % (0-10); Myelocyte 1 % (0-0); Neutrophil 93 % (42-75); Platelet Count 457 thou/uL (130-400); Platelet Morphology Comment Appears Increased; RBC Distribution Width 14.7 % (11.5-14.5); Red Blood Cell (RBC) Count 3.41 mill/uL (4.70-6.10); White Blood Cell (WBC) Count 14.8 thou/uL (4.8-10.8)
[2018-10-06 06:53] LABS: Actual Bicarbonate (HCO3a) 30.4 mEq/L (22-28); Base Excess (BEa) 4.6 mEq/L (-2.0 to +3.0); CO2 Tension 51.9 mmHg (35.0-45.0); Carboxyhemoglobin (COHb) 1.1 gm% (0.0-3.0); Hemoglobin (Hb) 9.2 g/dL (14.0-18.0); O2 Tension (PaO2) 77.4 mmHg (> 70.0); Potassium - ABG Lab 4.26 mmol/L (3.70-5.30); pH, Arterial 7.39 (7.35-7.45)
[2018-10-06 06:58] LABS: ALV-art Gradient 142.925 (0-20); Puncture Site LRA
[2018-10-06] MEDS: acetaZOLAMIDE Sodium 500 mg Vial IVP SCH (08:30)
[2018-10-06] MEDS: Metoprolol Tartrate 50 MG TAB PO SCH ×2 (08:31→20:38)
[2018-10-06] MEDS: Famotidine 20 MG TAB PO SCH ×2 (08:31→20:38)
[2018-10-06] MEDS: Amiodarone 200 MG TAB PO SCH ×2 (08:31→20:38)
--- NOTE | 2018-10-06 08:41 | RAD ---
CHEST ONE VIEW: HISTORY: Ventilated patient. COMPARISON: Radiograph from two days prior. FINDINGS: The patient is intubated with an endotracheal tube tip above the sherry approximately 1.5 cm. Layeri ng bilateral effusions. Multifocal left lung infiltrates have increased. Moderate pulmonary edema. Central venous catheter tip sits at the right atrium. Enteric tube tip felt to project over the gastric antrum. IMPRESSION: Mild worsening of left lung and right lung opacification, suggesting worsening pulmonary edema. POS: [facility]
--- NOTE | 2018-10-06 09:28 | PRG ---
DATE OF SERVICE: 10/06/2018 TIME SPENT: 35 minutes critical time. SUBJECTIVE: The patient remains intubated on mechanical ventilation. His family is at the bedside and I spoke to them in detail. OBJECTIVE: VITAL SIGNS: Temperature is 99.0, pulse 63, blood pressure 141/52, 24-hour intake 3950, output 2955. HEENT: Unremarkable. NECK: No adenopathy, JVD or bruits. LUNGS: Inspiratory crackles bilaterally. CARDIAC: S1, S2. Regular. ABDOMEN: Soft, nontender. EXTREMITIES: No edema. LABORATORY DATA: Sodium 140, potassium 4.3, chloride 104, CO2 of 30, BUN 42, creatinine 0.9, and glucose 271. White count 14.8, hematocrit 29.7, and platelet count 457. ABG: pH 7.39, pCO2 of 52, pO2 of 77, on bilevel rate of 15, FiO2 40% with a high pressure 25, low pressure of 7. IMAGING: Chest x-ray continues to show bilateral infiltrative changes, left greater than right. ASSESSMENT: 1. [id number] respiratory failure, requiring mechanical ventilation. 2. Idiopathic pulmonary fibrosis. 3. Status post right lung decortication for empyema. 4. Status post need for re-intubation after respiratory failure. 5. Hyperglycemia secondary to steroid use. 6. Chronic atrial fibrillation. PLAN: 1. I have decreased his inspiratory pressure and respiratory rate further. I think I will slowly dialysis down over the next several days with a goal of extubate towards the end of week or early next week in best case scenario. I have begun to prep the family that this may not go well as he has a fatal lung disease on top of all this and his clinical course is probably going to worsen even in the best case scenario. 2. We will continue antibiotics. 3. I have increased his insulin. Job ID: [id number]
[2018-10-06] MEDS: NPH, Human Insulin Isophane 300 UNIT/3 ML VIAL SC SCH ×2 (09:39→20:39)
--- NOTE | 2018-10-06 09:48 | PDOC.PN ---
- Subjective Encounter Start Date: 10/06/18 Encounter Start Time: 09:47 Subjective: intubated, sedated - Objective Resuscitation Status - Order Detail: 09/26/18 19:24 Resuscitation Status Routine Resuscitation Status: FULL: Full Resuscitation MAR Reviewed: Yes Vital Signs & Weight: Vital Signs (12 hours) Temp Pulse Pulse Pulse Resp BP BP 10/06/18 09:20 59 L 59 L 134/52 L 10/06/18 08:00 98.0 F 32 H 10/06/18 06:43 63 136/48 L 10/06/18 06:41 61 30 H 10/06/18 06:00 29 H 10/06/18 04:00 99.3 F 30 H 10/06/18 03:00 30 H 10/06/18 02:12 58 L 146/56 H 10/06/18 02:00 30 H 10/06/18 00:00 98.4 F 30 H 10/05/18 22:12 57 L 129/49 L 10/05/18 22:00 25 H BP Pulse Ox Pulse Ox Pulse Ox 10/06/18 09:20 131/57 L 100 100 10/06/18 08:00 10/06/18 06:43 10/06/18 06:41 99 10/06/18 06:00 10/06/18 04:00 10/06/18 03:00 10/06/18 02:12 10/06/18 02:00 10/06/18 00:00 10/05/18 22:12 10/05/18 22:00 Weight Admit Weight 273 lb Weight 273 lb 2.444 oz Most Recent Monitor Data Heart Rate from ECG 60 NIBP 131/57 NIBP BP-Mean 81 Respiration from ECG 27 SpO2 100 I&O: 10/05/18 10/06/18 10/07/18 06:59 06:59 06:59 Intake Total 3954 3950 150 Output Total 4140 2955 265 Balance -186 995 -115 Result Diagrams: 10/06/18 04:50 10/06/18 04:50 Additional Labs: Accuchecks 10/06/18 10/05/18 10/05/18 04:48 20:32 16:09 POC Glucose 265 H 269 H 271 H 10/05/18 10:06 POC Glucose 272 H Phys Exam - Physical Examination Neck: no JVD decreased BS, diffuse fine rales Cardiovascular: RRR, no significant murmur Gastrointestinal: soft, positive bowel sounds Musculoskeletal: edema present Dx/Plan (1) Acute respiratory failure with hypoxia Code(s): J96.01 - ACUTE RESPIRATORY FAILURE WITH HYPOXIA Status: Acute Comment: reintubated, ARDS (2) Empyema, right Code(s): J86.9 - PYOTHORAX WITHOUT FISTULA Status: Acute Comment: s/p decortication 09/[address] Barnett, growing alpha hemolytic streptococcus, on abx since 09/26/2018 (3) Right lower lobe pneumonia Code(s): J18.1 - LOBAR PNEUMONIA, UNSPECIFIED ORGANISM Status: Acute Qualifiers: Pneumonia type: due to unspecified organism Qualified Code(s): J18.1 - Lobar pneumonia, unspecified organism (4) Atrial fibrillation Code(s): I48.91 - UNSPECIFIED ATRIAL FIBRILLATION Status: Chronic Qualifiers: Atrial fibrillation type: paroxysmal Qualified Code(s): I48.0 - Paroxysmal atrial fibrillation Comment: currently in NSR, on Amiodarone (5) Diabetes mellitus, insulin dependent (IDDM), controlled Code(s): E11.9 - TYPE 2 DIABETES MELLITUS WITHOUT COMPLICATIONS; Z79.4 - ASSISTANT CREDIT MANAGER (CURRENT) USE OF INSULIN Status: Chronic Comment: restart home Lantus when eating, currently blood sugars well controlled (6) Hyperlipidemia Code(s): E78.5 - HYPERLIPIDEMIA, UNSPECIFIED Status: Chronic Qualifiers: Hyperlipidemia type: unspecified Qualified Code(s): E78.5 - Hyperlipidemia , unspecified Comment: Glycemic control inadequate. patient is on steroid. (7) Hypertension Code(s): I10 - ESSENTIAL (PRIMARY) HYPERTENSION Status: Chronic Qualifiers: Hypertension type: essential hypertension Qualified Code(s): I10 - Essential (primary) hypertension (8) Pulmonary fibrosis Code(s): J84.10 - PULMONARY FIBROSIS, UNSPECIFIED Status: Chronic - Plan on vent -: cont iv antibx -: nebs, steroids -: accu/ ss/ LA insulin -: prognosis guarded, discussed with family * .
[2018-10-06] MEDS: Micafungin 150 MG in Sodium Chloride 0.9% 100 ML IVPB SCH (12:25)
[2018-10-06] MEDS: Enoxaparin Sodium 40 MG/0.4 ML SYRINGE SC SCH (20:31)
[2018-10-07] MEDS: Propofol 1,000 MG/100 ML VIAL IV PRN ×4 (00:24→20:37)
[2018-10-07] MEDS: methylPREDNISolone Sod Succ 40 MG VIAL IVP SCH ×4 (00:25→17:10)
[2018-10-07] MEDS: Piperacillin/Tazobactam 3.375 GM in Sodium Chloride 0.9% 100 ML IVPB SCH ×4 (03:37→20:44)
[2018-10-07 05:23] LABS: Anion Gap 10 mmol/L (10-20); BUN (Urea Nitrogen) 37 mg/dL (8.4-25.7); Calc. Creatinine Clearance 115 mL/min (70-130); Calcium 8.1 mg/dL (7.8-10.44); Carbon Dioxide 29 mmol/L (23-31); Chloride 105 mmol/L (98-107); Estimated GFR-MDRD 80; Glucose 176 mg/dL (83-110); Potassium 4.3 mmol/L (3.5-5.1); Sodium 140 mmol/L (136-145)
[2018-10-07] MEDS: HumaLOG 300 UNITS/3 ML VIAL SC PRN ×3 (05:31→16:11)
[2018-10-07 05:35] LABS: Anisocytosis SLIGHT = 6-15 cells (100X) (0-5/hpf); Band 5 % (5-11); Eosinophils 1 % (0-10); Hemoglobin 9.7 g/dL (14.0-18.0); Lymphocytes 6 % (21-51); MDiff Complete? YES; Mean Corpuscular HGB CONC 30.5 g/dL (32.0-36.0); Mean Corpuscular Hemoglobin 26.9 pg (27.0-31.0); Mean Corpuscular Volume 88.1 fL (78.0-98.0); Mean Platelet Volume 8.8 fL (7.4-10.4); Monocytes 3 % (0-10); Neutrophil 85 % (42-75); Platelet Count 493 thou/uL (130-400); Red Blood Cell (RBC) Count 3.61 mill/uL (4.70-6.10); White Blood Cell (WBC) Count 17.7 thou/uL (4.8-10.8)
[2018-10-07 07:05] LABS: Actual Bicarbonate (HCO3a) 29.1 mEq/L (22-28); Base Excess (BEa) 3.1 mEq/L (-2.0 to +3.0); CO2 Tension 51.7 mmHg (35.0-45.0); Calcium, Ionized 1.23 mmol/L (1.12-1.30); Carboxyhemoglobin (COHb) 0.7 gm% (0.0-3.0); Hemoglobin (Hb) 9.6 g/dL (14.0-18.0); O2 Tension (PaO2) 87.3 mmHg (> 70.0); Potassium - ABG Lab 4.28 mmol/L (3.70-5.30); pH, Arterial 7.37 (7.35-7.45)
[2018-10-07 07:20] LABS: ALV-art Gradient 133.275 (0-20); Puncture Site LRA
--- NOTE | 2018-10-07 07:41 | RAD ---
SINGLE VIEW CHEST: Date: 10/07/18 COMPARISON: 10/06/18. HISTORY: Ventilated patient with respiratory failure. FINDINGS: Single view of the chest shows an enlarged but stable cardiomediastinal silhouette. The endotracheal tube and NG tube are unchanged in position. The central venous catheter has been removed. Diffuse inc reased interstitial lung markings are present. There may be superimposed air space opacities in the l ungs. IMPRESSION: Stable multifocal infiltrates. POS: [facility]
--- NOTE | 2018-10-07 08:04 | PRG ---
DATE OF SERVICE: 10/07/2018 TIME SPENT: 35 minutes critical time. SUBJECTIVE: Mr. Mejía continues on mechanical ventilation. There have been no major changes overnight. OBJECTIVE: VITAL SIGNS: On exam, his temperature is 98.6, pulse 64, blood pressure 121/56, O2 saturation 100%. He is currently sedated on propofol. A 24-hour intake output 1708, weight 271 pounds. HEENT: Unremarkable. NECK: No JVD. LUNGS: Inspiratory crackles bilaterally. CARDIAC: S1 and S2, regular. No murmur. ABDOMEN: Soft, obese, nontender, and nondistended. EXTREMITIES: No clubbing, cyanosis, or edema. LABORATORY DATA: Sodium 140, potassium 4.3, chloride 105, CO2 of 29, BUN 37, creatinine 0.9, glucose 176. White count 17.7, hematocrit 31.8, and platelet count 493. PH 7.37, pCO2 of 51, pO2 of 87, on bilevel rate 12, high pressure 23, low pressure 7, FiO2 40%. Chest x-ray, prominent infiltrative changes, especially on the left, probably reflective of his underlying pulmonary fibrosis. ASSESSMENT: 1. Acute on chronic respiratory failure, requiring mechanical ventilation. 2. Status post right lung decortication. 3. Obesity. 4. History of atrial fibrillation. PLAN: I tried him on spontaneous breathing today and his frequency of tidal volume ratio was about 140, which is far too high to facilitate weaning. I am continuing to decrease his inspiratory pressure and PEEP little by little with hopes of one more try of re-extubating either later this week or early next week. However, I do feel that it will be very difficult to wean this patient without tracheostomy and I doubt the patient would want tracheostomy given my previous interactions with him and talking with the family. I continue to discuss with the family. I will gently begin to address code issues with them. They seem to be very reasonable in terms of expectation for outcome. Job ID: [id number]
[2018-10-07] MEDS: Metoprolol Tartrate 50 MG TAB PO SCH ×2 (08:44→20:45)
[2018-10-07] MEDS: Famotidine 20 MG TAB PO SCH ×2 (08:44→20:46)
[2018-10-07] MEDS: Amiodarone 200 MG TAB PO SCH ×2 (08:44→20:45)
[2018-10-07] MEDS: acetaZOLAMIDE Sodium 500 mg Vial IVP SCH (08:44)
[2018-10-07] MEDS: NPH, Human Insulin Isophane 300 UNIT/3 ML VIAL SC SCH ×2 (08:45→21:32)
--- NOTE | 2018-10-07 10:35 | PDOC.PN ---
- Subjective Encounter Start Date: 10/07/18 Encounter Start Time: 10:34 - Objective Resuscitation Status - Order Detail: 09/26/18 19:24 Resuscitation Status Routine Resuscitation Status: FULL: Full Resuscitation MAR Reviewed: Yes Vital Signs & Weight: Vital Signs (12 hours) Temp Pulse Resp BP Pulse Ox 10/07/18 10:12 65 136/55 L 10/07/18 10:10 67 31 H 99 10/07/18 10:00 29 H 10/07/18 08:00 97.7 F 29 H 10/07/18 07:00 55 L 143/63 H 10/07/18 06:58 54 L 27 H 99 10/07/18 06:00 25 H 10/07/18 04:00 98.5 F 32 H 10/07/18 02:10 56 L 120/54 L 10/07/18 02:00 30 H 10/07/18 00:00 98.6 F 33 H Weight Admit Weight 273 lb Weight 271 lb 6.224 oz Most Recent Monitor Data Heart Rate from ECG 64 NIBP 136/55 NIBP BP-Mean 82 Respiration from ECG 31 SpO2 98 I&O: 10/06/18 10/07/18 10/08/18 06:59 06:59 06:59 Intake Total 3950 3742 200 Output Total 2955 1708 325 Balance 995 2034 -125 Result Diagrams: 10/07/18 04:30 10/07/18 04:30 Additional Labs: Accuchecks 10/07/18 10/06/18 10/06/18 04:29 20:29 16:37 POC Glucose 171 H 212 H 201 H 10/06/18 11:20 POC Glucose 238 H Radiology Reviewed by me: Yes (cxr- ET tube, dense L infiltate) Phys Exam - Physical Examination Neck: no JVD rales, rhonchi all [place] Cardiovascular: RRR, no significant murmur Gastrointestinal: positive bowel sounds Musculoskeletal: edema present Dx/Plan (1) Acute respiratory failure with hypoxia Code(s): J96.01 - ACUTE RESPIRATORY FAILURE WITH HYPOXIA Status: Acute Comment: reintubated, ARDS (2) Empyema, right Code(s): J86.9 - PYOTHORAX WITHOUT FISTULA Status: Acute Comment: s/p decortication 09/[address] Barnett, growing alpha hemolytic streptococcus, on abx since 09/26/2018 (3) Right lower lobe pneumonia Code(s): J18.1 - LOBAR PNEUMONIA, UNSPECIFIED ORGANISM Status: Acute Qualifiers: Pneumonia type: due to unspecified organism Qualified Code(s): J18.1 - Lobar pneumonia, unspecified organism (4) Atrial fibrillation Code(s): I48.91 - UNSPECIFIED ATRIAL FIBRILLATION Status: Chronic Qualifiers: Atrial fibrillation type: paroxysmal Qualified Code(s): I48.0 - Paroxysmal atrial fibrillation Comment: currently in NSR, on Amiodarone (5) Diabetes mellitus, insulin dependent (IDDM), controlled Code(s): E11.9 - TYPE 2 DIABETES MELLITUS WITHOUT COMPLICATIONS; Z79.4 - [facility] (CURRENT) USE OF INSULIN Status: Chronic Comment: restart home Lantus when eating, currently blood sugars well controlled (6) Hyperlipidemia Code(s): E78.5 - HYPERLIPIDEMIA, UNSPECIFIED Status: Chronic Qualifiers: Hyperlipidemia type: unspecified Qualified Code(s): E78.5 - Hyperlipidemia , unspecified Comment: Glycemic control inadequate. patient is on steroid. (7) Hypertension Code(s): I10 - ESSENTIAL (PRIMARY) HYPERTENSION Status: Chronic Qualifiers: Hypertension type: essential hypertension Qualified Code(s): I10 - Essential (primary) hypertension (8) Pulmonary fibrosis Code(s): J84.10 - PULMONARY FIBROSIS, UNSPECIFIED Status: Chronic - Plan unweanable at present, cont vent support -: cont nebs, steroids, antibx -: cont amiodarone -: cont accu/ss LA insulin -: discussed with high value associate * .
[2018-10-07] MEDS: Micafungin 150 MG in Sodium Chloride 0.9% 100 ML IVPB SCH (11:26)
[2018-10-07] MEDS: fentaNYL 50 mcg/hour Patch TD SCH (16:10)
[2018-10-07] MEDS: Enoxaparin Sodium 40 MG/0.4 ML SYRINGE SC SCH (20:46)
[2018-10-08] MEDS: methylPREDNISolone Sod Succ 40 MG VIAL IVP SCH ×4 (00:16→17:33)
[2018-10-08] MEDS: Propofol 1,000 MG/100 ML VIAL IV PRN ×3 (02:48→20:36)
[2018-10-08] MEDS: Piperacillin/Tazobactam 3.375 GM in Sodium Chloride 0.9% 100 ML IVPB SCH ×4 (02:48→20:41)
[2018-10-08] MEDS: HumaLOG 300 UNITS/3 ML VIAL SC PRN ×4 (04:30→21:16)
[2018-10-08 05:32] LABS: Band 1 % (5-11); Hemoglobin 9.7 g/dL (14.0-18.0); Lymphocytes 5 % (21-51); MDiff Complete? YES; Mean Corpuscular HGB CONC 30.8 g/dL (32.0-36.0); Mean Corpuscular Hemoglobin 27.5 pg (27.0-31.0); Mean Corpuscular Volume 89.4 fL (78.0-98.0); Mean Platelet Volume 9.6 fL (7.4-10.4); Monocytes 7 % (0-10); Neutrophil 87 % (42-75); Platelet Count 450 thou/uL (130-400); Platelet Morphology Comment Appears Increased; RBC Distribution Width 15.6 % (11.5-14.5); Red Blood Cell (RBC) Count 3.51 mill/uL (4.70-6.10); White Blood Cell (WBC) Count 18.5 thou/uL (4.8-10.8)
[2018-10-08 05:44] LABS: Anion Gap 11 mmol/L (10-20); BUN (Urea Nitrogen) 33 mg/dL (8.4-25.7); Calc. Creatinine Clearance 118 mL/min (70-130); Calcium 7.9 mg/dL (7.8-10.44); Carbon Dioxide 28 mmol/L (23-31); Chloride 105 mmol/L (98-107); Estimated GFR-MDRD 79; Glucose 177 mg/dL (83-110); Sodium 139 mmol/L (136-145)
[2018-10-08 06:35] LABS: Actual Bicarbonate (HCO3a) 29.4 mEq/L (22-28); Base Excess (BEa) 2.7 mEq/L (-2.0 to +3.0); CO2 Tension 57.3 mmHg (35.0-45.0); Calcium, Ionized 1.18 mmol/L (1.12-1.30); Carboxyhemoglobin (COHb) 0.7 gm% (0.0-3.0); Hemoglobin (Hb) 9.5 g/dL (14.0-18.0); O2 Tension (PaO2) 81.9 mmHg (> 70.0); Potassium - ABG Lab 4.13 mmol/L (3.70-5.30); pH, Arterial 7.33 (7.35-7.45)
[2018-10-08 06:37] LABS: ALV-art Gradient 131.675 (0-20); Puncture Site LRA
--- NOTE | 2018-10-08 08:12 | PDOC.PN ---
- Subjective Encounter Start Date: 10/08/18 Encounter Start Time: 08:10 Subjective: intubated, sedated - Objective Resuscitation Status - Order Detail: 10/07/18 14:43 Resuscitation Status Routine Resuscitation Status: DNAR: NO Resuscitation Discussed with: Dr. Mock discussed with and sister DEBORAH Reviewed: Yes Vital Signs & Weight: Vital Signs (12 hours) Temp Pulse Resp BP Pulse Ox 10/08/18 08:00 97.6 F 24 H 10/08/18 06:29 50 L 111/51 L 10/08/18 06:28 50 L 22 H 99 10/08/18 06:00 24 H 10/08/18 04:00 98.1 F 24 H 10/08/18 02:20 53 L 125/56 L 10/08/18 02:00 24 H 10/08/18 00:00 97.9 F 24 H 10/07/18 22:03 56 L 127/53 L 10/07/18 22:00 26 H Weight Admit Weight 273 lb Weight 281 lb 12.012 oz Most Recent Monitor Data Heart Rate from ECG 61 NIBP 131/49 NIBP BP-Mean 76 Respiration from ECG 22 SpO2 100 I&O: 10/07/18 10/08/18 10/09/18 06:59 06:59 06:59 Intake Total 3742 2952 80 Output Total 1708 1655 80 Balance 2034 1297 0 Result Diagrams: 10/08/18 04:24 10/08/18 04:24 Additional Labs: Accuchecks 10/08/18 10/07/18 10/07/18 04:24 21:30 16:05 POC Glucose 177 H 185 H 175 H 10/07/18 11:09 POC Glucose 184 H Radiology Reviewed by me: Yes (cxr- unchanged, ) Phys Exam - Physical Examination Neck: no JVD difuse fine rales and rhonchi Cardiovascular: RRR, no significant murmur Gastrointestinal: soft, positive bowel sounds Musculoskeletal: edema present Dx/Plan (1) Acute respiratory failure with hypoxia Code(s): J96.01 - ACUTE RESPIRATORY FAILURE WITH HYPOXIA Status: Acute Comment: reintubated, ARDS (2) Empyema, right Code(s): J86.9 - PYOTHORAX WITHOUT FISTULA Status: Acute Comment: s/p decortication 09/[address] Barnett, growing alpha hemolytic streptococcus, on abx since 09/26/2018 (3) Right lower lobe pneumonia Code(s): J18.1 - LOBAR PNEUMONIA, UNSPECIFIED ORGANISM Status: Acute Qualifiers: Pneumonia type: due to unspecified organism Qualified Code(s): J18.1 - Lobar pneumonia, unspecified organism (4) Atrial fibrillation Code(s): I48.91 - UNSPECIFIED ATRIAL FIBRILLATION Status: Chronic Qualifiers: Atrial fibrillation type: paroxysmal Qualified Code(s): I48.0 - Paroxysmal atrial fibrillation Comment: currently in NSR, on Amiodarone (5) Diabetes mellitus, insulin dependent (IDDM), controlled Code(s): E11.9 - TYPE 2 DIABETES MELLITUS WITHOUT COMPLICATIONS; Z79.4 - PENITENTIARY (CURRENT) USE OF INSULIN Status: Chronic Comment: restart home Lantus when eating, currently blood sugars well controlled (6) Hyperlipidemia Code(s): E78.5 - HYPERLIPIDEMIA, UNSPECIFIED Status: Chronic Qualifiers: Hyperlipidemia type: unspecified Qualified Code(s): E78.5 - Hyperlipidemia , unspecified Comment: Glycemic control inadequate. patient is on steroid. (7) Hypertension Code(s): I10 - ESSENTIAL (PRIMARY) HYPERTENSION Status: Chronic Qualifiers: Hypertension type: essential hypertension Qualified Code(s): I10 - Essential (primary) hypertension (8) Pulmonary fibrosis Code(s): J84.10 - PULMONARY FIBROSIS, UNSPECIFIED Status: Chronic - Plan cont agressive, nebs, steroids, antibx, etc -: on intermittent C-PAP at presenr -: palliative care to see today with family * .
--- NOTE | 2018-10-08 08:14 | PRG ---
DATE OF SERVICE: 10/08/2018 TIME SPENT: 35 minutes critical time. SUBJECTIVE: The patient remains intubated on mechanical ventilation, but no acute changes overnight. OBJECTIVE: VITAL SIGNS: Temperature is 98.1, pulse 52, blood pressure 121/51, O2 saturation 99%, total intake for 24 hours 2952, output 1655. HEENT: Unremarkable. NECK: No JVD. LUNGS: Inspiratory crackles bilaterally. CARDIAC: S1, S2. Slightly bradycardic. ABDOMEN: Soft, obese, nontender, and nondistended. EXTREMITIES: No edema. LABORATORY DATA: Sodium 139, potassium 5.0, chloride 105, CO2 of 28, BUN 33, creatinine 0.9, glucose 177. White blood cell count 18.5, hematocrit 31.3, and platelet count 450. pH 7.33, pCO2 57, PO2 of 82, on bilevel 2, high pressure 21, low pressure 6, FiO2 40%. Chest x-ray shows no acute change. ASSESSMENT: 1. [id number] hypoxic respiratory failure secondary to idiopathic pulmonary fibrosis. 2. Status post right lung decortication for empyema. 3. Obesity. 4. Atrial fibrillation-history. PLAN: I talked with the family yesterday, told them I did not think this would boot turner well. We did agree to put a do not attempt resuscitation order on the chart. I am still working on weaning the ventilator down with a goal of extubating either later this week or early next week. I am not holding out much hope that he will do well after extubation. In the meantime, we are continuing supportive care with the antibiotics, antifungals and insulin. I am going to add a small dose of Lasix back to the current acetazolamide given that he is fluid positive. Job ID: [id number]
[2018-10-08] MEDS: Metoprolol Tartrate 50 MG TAB PO SCH ×2 (08:18→20:41)
[2018-10-08] MEDS: Amiodarone 200 MG TAB PO SCH ×2 (08:18→20:39)
[2018-10-08] MEDS: Famotidine 20 MG TAB PO SCH ×2 (08:18→20:41)
[2018-10-08] MEDS: NPH, Human Insulin Isophane 300 UNIT/3 ML VIAL SC SCH ×2 (08:20→21:15)
--- NOTE | 2018-10-08 08:56 | RAD ---
AP CHEST: History: Ventilator dependent patient. Date: 10-08-18 Comparison: 10-07-18 FINDINGS: AP chest demonstrates NG tube in place with distal tip overlying the gastric antrum. The endotracheal tube overlies the tracheal air column, distal tip at the level of the sherry. This should be pulled back 2-3 cm to be in optimum position. Pulmonary vascular congestion is seen. Diffuse interstitial density seen throughout the lungs, unchanged since the previous exam. No other s ignificant interval changes noted. IMPRESSION: Stable AP chest. POS: [facility]
[2018-10-08] MEDS ORDERED: Furosemide 40 MG/4 ML VIAL IVP SCH (09:00)
[2018-10-08] MEDS ORDERED: AcetaZOLAMIDE 250 MG TAB PO SCH (09:00)
[2018-10-08] MEDS: Micafungin 150 MG in Sodium Chloride 0.9% 100 ML IVPB SCH (11:00)
[2018-10-08] MEDS: Enoxaparin Sodium 40 MG/0.4 ML SYRINGE SC SCH (20:41)
[2018-10-09] MEDS: methylPREDNISolone Sod Succ 40 MG VIAL IVP SCH ×4 (00:46→17:49)
[2018-10-09] MEDS: Piperacillin/Tazobactam 3.375 GM in Sodium Chloride 0.9% 100 ML IVPB SCH (04:19)
[2018-10-09] MEDS: Propofol 1,000 MG/100 ML VIAL IV PRN ×3 (04:24→18:46)
[2018-10-09 05:37] LABS: Anion Gap 12 mmol/L (10-20); BUN (Urea Nitrogen) 39 mg/dL (8.4-25.7); Calc. Creatinine Clearance 126 mL/min (70-130); Calcium 7.9 mg/dL (7.8-10.44); Carbon Dioxide 27 mmol/L (23-31); Chloride 105 mmol/L (98-107); Estimated GFR-MDRD 86; Glucose 176 mg/dL (83-110); Sodium 138 mmol/L (136-145)
[2018-10-09] MEDS: HumaLOG 300 UNITS/3 ML VIAL SC PRN (06:30)
[2018-10-09 06:57] LABS: Analyzer IN Cardio ER; CO2 Tension 59.1 mmHg (35.0-45.0); Calcium, Ionized 1.15 mmol/L (1.12-1.30); Carboxyhemoglobin (COHb) 0.6 gm% (0.0-3.0); Hemoglobin (Hb) 10.2 g/dL (14.0-18.0); O2 Tension (PaO2) 91.6 mmHg (> 70.0); Potassium - ABG Lab 4.32 mmol/L (3.70-5.30); pH, Arterial 7.32 (7.35-7.45)
[2018-10-09 06:58] LABS: ALV-art Gradient 119.725 (0-20); Puncture Site LRA
--- NOTE | 2018-10-09 08:12 | PRG ---
DATE OF SERVICE: 10/09/2018 TIME SPENT: 35 minutes critical care time. SUBJECTIVE: Mr. Mejía's clinical condition has not changed much overnight. OBJECTIVE: VITAL SIGNS: His temperature is 98.4, pulse 56, blood pressure 139/52, and O2 saturation 98%. His total intake for the last 24 hours was 1562 mL, total output was 1930 mL. His weight is currently 279 pounds. NEUROLOGICAL: He will wake up and open his eyes. Does not move around to command. He is currently sedated on a small amount of propofol. HEENT: Otherwise unremarkable. NECK: No JVD. LUNGS: Inspiratory crackles to both bases. CARDIAC: S1 and S2. Slightly bradycardic. ABDOMEN: Soft, obese, nontender, and nondistended. EXTREMITIES: No clubbing, cyanosis, or edema. LABORATORY DATA: Sodium 138, potassium read as 6.0, but I think that is erroneous as the blood gas potassium is 4.3, chloride 105, CO2 of 27, BUN 39, creatinine 0.8, and glucose 176. PH 7.32, pCO2 of 59, pO2 of 91, that is on bilevel rate 12, inspiratory pressure 23, PEEP 6, and FiO2 of 40%. For some reason, the CBC is not back yet. Chest x-ray shows that the ET tube is probably right at the sherry. There is decreased aeration on the left side. ASSESSMENT: 1. Acute respiratory failure requiring mechanical ventilation. 2. Chronic respiratory failure secondary to idiopathic pulmonary fibrosis. 3. Question of hyperkalemia-I think this is probably erroneously and secondary to hemolysis given that the blood gas potassium is not equivalent to the first drawn chemistry. 4. Obesity. 5. History of atrial fibrillation. PLAN: 1. I am attempting to slowly wean his ventilator. I have turned him over to SIMV volume ventilation today. 2. We have pulled his ET tube back 2 cm. 3. Stop the Zosyn since he has been on that for over 10 days. 4. The antifungal should be stopped this weekend. 5. Continue low-dose steroids. 6. We are working toward extubation early next week. The family is very realistic about outcome. They have placed a do not attempt resuscitation order on the chart. If he fails extubation, he will not be reintubated. 7. Stop the diuretics for the time being, but may have to add those back this weekend. Job ID: [id number]
--- NOTE | 2018-10-09 08:16 | RAD ---
AP VIEW CHEST: HISTORY: Ventilator-dependent patient. DATE: 10/09/2018. COMPARISON: Comparison is made to previous exam from 10/08/2018. FINDINGS: AP view chest demonstrates nasogastric tube in place, distal tip not visualized. The endotracheal tu be is in position at the level of the sherry. This should be pulled back 3-4 cm to be in optimum pos ition. Pulmonary vascular congestion is seen. Bilateral airspace opacities are seen. A left-sided pleural effusion is seen. Radiographic appearance of the chest is stable. IMPRESSION: 1. Airspace opacities and left-sided pleural effusion. 2. Endotracheal tube is at the level of the sherry and should be pulled back 3-4 cm. Findings discussed with Dr. Mock at 7:38 a.m. on 10/09/2018. CODE CR POS: [facility]
[2018-10-09] MEDS: Metoprolol Tartrate 50 MG TAB PO SCH ×2 (08:38→21:59)
[2018-10-09] MEDS: Famotidine 20 MG TAB PO SCH ×2 (08:38→21:56)
[2018-10-09] MEDS: Amiodarone 200 MG TAB PO SCH ×2 (08:38→21:56)
[2018-10-09] MEDS: NPH, Human Insulin Isophane 300 UNIT/3 ML VIAL SC SCH ×2 (08:44→21:50)
--- NOTE | 2018-10-09 09:03 | PRG ---
DATE OF SERVICE: 10/09/2018 Do not resuscitate status. SUBJECTIVE: The patient is seen and examined at bedside. He is in CCU bed 7. He is intubated on the ventilator and sedated. He is receiving feeding through the NG tube. OBJECTIVE: VITAL SIGNS: Blood pressure is 138/59, heart rate 58, respiratory rate is 19, O2 saturation is 99%, his FiO2 is 30%. His tidal volume is 450, PEEP 6, and pressure support 10. He is in normal sinus rhythm. HEENT: His pupils responding to light, although sluggish. He is orally intubated. LUNGS: Breath sounds diminished at both bases and crackles present bilaterally, mostly on the left side. HEART: S1 and S2 normal. No S3. No S4. ABDOMEN: Obese, soft, nondistended. Bowel sounds are sluggish. EXTREMITIES: 1+ peripheral edema. NEUROLOGIC: Postponed since he is sedated. LABORATORY DATA: Labs showed ABGs; pH of 7.3, pCO2 of 59.1, pO2 of 91.6. Glycemia is ranging from 177 to 212. Sodium is 138, potassium 6.0, chloride 105, BUN 39, creatinine 0.86, calcium 7.9. Microbiology, no new findings. Chest x-ray showed significant change of the left lung suggestive of some vascular congestion with some pleural effusion. IMPRESSION: 1. Respiratory failure, acute on chronic hypoxemic secondary to idiopathic pulmonary fibrosis. 2. Right lung empyema and status post right lung decortication by Dr. Barnett on September 26. 3. Atrial fibrillation, currently in sinus rhythm on amiodarone. 4. Diabetes mellitus, relatively well controlled. 5. Hyperlipidemia, chronic, stable. 6. Hypertension, chronic, stable. 7. Pulmonary fibrosis, chronic. DISCUSSION: The patient is in the intensive care unit. He is still intubated. The plan is to try to extubate him in the next few days, but seo analyst does not feel like he is going to do well. For now, we will continue his IV steroids and IV fungal. I do not see any IV antibiotics. We will check with the pharmacy and with Dr. Mock. We will continue supportive care. We will continue mechanical ventilation and ventilator support for now. Job ID: [id number]
[2018-10-09 09:17] LABS: Hemoglobin 9.8 g/dL (14.0-18.0); Mean Corpuscular HGB CONC 30.4 g/dL (32.0-36.0); Mean Corpuscular Volume 85.5 fL (78.0-98.0); Platelet Count 386 thou/uL (130-400); RBC Distribution Width 15.6 % (11.5-14.5); Red Blood Cell (RBC) Count 3.76 mill/uL (4.70-6.10); White Blood Cell (WBC) Count 15.9 thou/uL (4.8-10.8)
[2018-10-09 09:36] VITALS: BMI 38.9
[2018-10-09 09:36] LABS: Potassium 4.5 mmol/L (3.5-5.1)
[2018-10-09 09:52] LABS: Band 3 % (5-11); Lymphocytes 2 % (21-51); MDiff Complete? YES; Monocytes 2 % (0-10); Myelocyte 2 % (0-0); Neutrophil 96 % (42-75)
[2018-10-09 09:53] LABS: Hypochromia SLIGHT = 6-15 cells (100X) (0-5/hpf)
[2018-10-09] MEDS: Micafungin 150 MG in Sodium Chloride 0.9% 100 ML IVPB SCH (11:51)
[2018-10-09] MEDS: Enoxaparin Sodium 40 MG/0.4 ML SYRINGE SC SCH (21:55)
[2018-10-10] MEDS: methylPREDNISolone Sod Succ 40 MG VIAL IVP SCH ×5 (00:34→23:03)
[2018-10-10] MEDS: Propofol 1,000 MG/100 ML VIAL IV PRN ×3 (05:00→22:52)
[2018-10-10 05:22] LABS: Anion Gap 7 mmol/L (10-20); BUN (Urea Nitrogen) 41 mg/dL (8.4-25.7); Calc. Creatinine Clearance 129 mL/min (70-130); Calcium 8.2 mg/dL (7.8-10.44); Carbon Dioxide 33 mmol/L (23-31); Chloride 105 mmol/L (98-107); Estimated GFR-MDRD 89; Glucose 123 mg/dL (83-110); Sodium 140 mmol/L (136-145)
[2018-10-10 05:44] LABS: Band 15 % (5-11); Hemoglobin 9.7 g/dL (14.0-18.0); Hypochromia MODERATE=16-30 cells (100X) (0-5/hpf); Lymphocytes 2 % (21-51); MDiff Complete? YES; Mean Corpuscular HGB CONC 29.6 g/dL (32.0-36.0); Mean Corpuscular Hemoglobin 26.7 pg (27.0-31.0); Mean Corpuscular Volume 90.3 fL (78.0-98.0); Mean Platelet Volume 8.7 fL (7.4-10.4); Monocytes 2 % (0-10); Neutrophil 81 % (42-75); Platelet Count 475 thou/uL (130-400); Platelet Morphology Comment Appears Increased; RBC Distribution Width 16.1 % (11.5-14.5); Red Blood Cell (RBC) Count 3.63 mill/uL (4.70-6.10); White Blood Cell (WBC) Count 18.4 thou/uL (4.8-10.8)
[2018-10-10 06:34] LABS: Actual Bicarbonate (HCO3a) 31.9 mEq/L (22-28); Base Excess (BEa) 5.1 mEq/L (-2.0 to +3.0); CO2 Tension 59.1 mmHg (35.0-45.0); Calcium, Ionized 1.24 mmol/L (1.12-1.30); Hemoglobin (Hb) 10.4 g/dL (14.0-18.0); O2 Tension (PaO2) 78.8 mmHg (> 70.0); Potassium - ABG Lab 4.74 mmol/L (3.70-5.30); pH, Arterial 7.35 (7.35-7.45)
[2018-10-10 06:35] LABS: ALV-art Gradient 132.525 (0-20); Puncture Site LRA
[2018-10-10] MEDS: Amiodarone 200 MG TAB PO SCH ×2 (08:50→21:35)
[2018-10-10] MEDS: Famotidine 20 MG TAB PO SCH ×2 (08:50→21:37)
[2018-10-10] MEDS: Metoprolol Tartrate 50 MG TAB PO SCH ×2 (08:51→21:37)
[2018-10-10] MEDS: NPH, Human Insulin Isophane 300 UNIT/3 ML VIAL SC SCH ×2 (08:55→21:39)
--- NOTE | 2018-10-10 09:01 | RAD ---
SINGLE VIEW OF THE CHEST: COMPARISON: 10/09/2018. HISTORY: Ventilated patient with respiratory failure. FINDINGS: A single view of the chest shows an enlarged cardiomediastinal silhouette. The endotracheal tube is unchanged in position. An NG tube is seen in the stomach. Increased interstitial lung markings are present. There appear to be superimposed airspace opacities in the left lower lobe. IMPRESSION: Stable exam. POS: [facility]
--- NOTE | 2018-10-10 10:24 | PRG ---
DATE OF SERVICE: 10/10/2018 SUBJECTIVE: This morning, he remains intubated in the vent, sedated. He opens his eyes extremely weak. OBJECTIVE: VITAL SIGNS: Blood pressure is 137/56, respiratory rate 12, sats are 90%, afebrile. I's and O's even. CHEST: Extensive crackles bilaterally. CARDIAC: Normal S1, S2. No gallops. ABDOMEN: No masses. EXTREMITIES: Trace edema. LABORATORY DATA: His white count 38446, H and H 9 and 27, platelet count is normal. PO2 is 78, pCO2 of on a rate of 6, 40%. BUN and creatinine of 41 and 0.8. IMPRESSION: 1. Respiratory failure. 2. End-stage pulmonary fibrosis, possibly superimposed pneumonia. PLAN: 1. He is not weanable at this stage. 2. Morbid obesity. 3. Atrial fibrillation. 4. Try and minimize sedation. Continue nutrition. 5. Discussed with family long-term goals. One-half hour of critical time. Job ID: [id number]
--- NOTE | 2018-10-10 12:07 | PDOC.PN ---
- Subjective Encounter Start Date: 10/10/18 Encounter Start Time: 12:05 Subjective: Seen and examined -still o life support - Objective Resuscitation Status - Order Detail: 10/07/18 14:43 Resuscitation Status Routine Resuscitation Status: DNAR: NO Resuscitation Discussed with: Dr. Mock discussed with and sister Vital Signs & Weight: Vital Signs (12 hours) Temp Pulse Resp BP Pulse Ox 10/10/18 10:55 60 140/58 L 10/10/18 10:00 25 H 10/10/18 08:00 98.2 F 13 99 10/10/18 06:13 59 L 131/45 L 10/10/18 06:00 17 10/10/18 04:00 98.2 F 15 10/10/18 02:17 54 L 20 100 10/10/18 02:00 15 Weight Admit Weight 273 lb Weight 274 lb 0.553 oz Most Recent Monitor Data Heart Rate from ECG 58 NIBP 134/43 NIBP BP-Mean 73 Respiration from ECG 19 SpO2 98 I&O: 10/09/18 10/10/18 10/11/18 06:59 06:59 07:59 Intake Total 1562 845 18 Output Total 1930 1040 244 Balance -368 -195 -226 Result Diagrams: 10/10/18 05:13 10/10/18 04:50 Additional Labs: Accuchecks 10/10/18 10/10/18 10/09/18 09:00 04:50 21:54 POC Glucose 119 H 120 H 117 H 10/09/18 17:01 POC Glucose 132 H Phys Exam - Physical Examination intubated vented sounds Cardiovascular: RRR Gastrointestinal: no distention Musculoskeletal: pulses present Dx/Plan (1) Acute respiratory failure with hypoxia Code(s): J96.01 - ACUTE RESPIRATORY FAILURE WITH HYPOXIA Status: Acute Comment: reintubated, ARDS (2) Diastolic heart failure Code(s): I50.30 - UNSPECIFIED DIASTOLIC (CONGESTIVE) HEART FAILURE Status: Acute (3) Empyema, right Code(s): J86.9 - PYOTHORAX WITHOUT FISTULA Status: Acute Comment: s/p decortication 09/[address] Barnett, growing alpha hemolytic streptococcus, on abx since 09/26/2018 (4) Right lower lobe pneumonia Code(s): J18.1 - LOBAR PNEUMONIA, UNSPECIFIED ORGANISM Status: Acute Qualifiers: Pneumonia type: due to unspecified organism Qualified Code(s): J18.1 - Lobar pneumonia, unspecified organism (5) Sepsis Code(s): A41.9 - SEPSIS, UNSPECIFIED ORGANISM Status: Acute Comment: Leukocytosis improving inspite of respiratory setback, no change to antibiotics at this time (6) Atrial fibrillation Code(s): I48.91 - UNSPECIFIED ATRIAL FIBRILLATION Status: Chronic Qualifiers: Atrial fibrillation type: paroxysmal Qualified Code(s): I48.0 - Paroxysmal atrial fibrillation Comment: currently in NSR, on Amiodarone (7) Diabetes mellitus, insulin dependent (IDDM), controlled Code(s): E11.9 - TYPE 2 DIABETES MELLITUS WITHOUT COMPLICATIONS; Z79.4 - CORRECTION (CURRENT) USE OF INSULIN Status: Chronic Comment: restart home Lantus when eating, currently blood sugars well controlled (8) Hyperlipidemia Code(s): E78.5 - HYPERLIPIDEMIA, UNSPECIFIED Status: Chronic Qualifiers: Hyperlipidemia type: unspecified Qualified Code(s): E78.5 - Hyperlipidemia , unspecified Comment: Glycemic control inadequate. patient is on steroid. - Plan respiratory therapy Possible extubation on friday * .
[2018-10-10] MEDS: fentaNYL 50 mcg/hour Patch TD SCH (17:35)
[2018-10-10] MEDS: Enoxaparin Sodium 40 MG/0.4 ML SYRINGE SC SCH (21:36)
[2018-10-11] MEDS: methylPREDNISolone Sod Succ 40 MG VIAL IVP SCH ×3 (05:23→18:22)
[2018-10-11] MEDS: HumaLOG 300 UNITS/3 ML VIAL SC PRN (05:30)
[2018-10-11 07:04] LABS: Anion Gap 8 mmol/L (10-20); BUN (Urea Nitrogen) 42 mg/dL (8.4-25.7); Calc. Creatinine Clearance 133 mL/min (70-130); Calcium 8.2 mg/dL (7.8-10.44); Carbon Dioxide 33 mmol/L (23-31); Chloride 106 mmol/L (98-107); Estimated GFR-MDRD Greater than 90; Glucose 153 mg/dL (83-110); Potassium 5.1 mmol/L (3.5-5.1); Sodium 142 mmol/L (136-145)
[2018-10-11] MEDS: Famotidine 20 MG TAB PO SCH ×2 (08:05→20:10)
[2018-10-11] MEDS: Propofol 1,000 MG/100 ML VIAL IV PRN ×2 (08:05→22:27)
[2018-10-11] MEDS: Amiodarone 200 MG TAB PO SCH ×2 (08:06→20:10)
[2018-10-11] MEDS: Metoprolol Tartrate 50 MG TAB PO SCH ×2 (08:06→20:11)
[2018-10-11] MEDS: NPH, Human Insulin Isophane 300 UNIT/3 ML VIAL SC SCH ×2 (08:07→20:22)
[2018-10-11 08:15] LABS: Hemoglobin 9.7 g/dL (14.0-18.0); Mean Corpuscular Hemoglobin 26.3 pg (27.0-31.0); Mean Corpuscular Volume 90.9 fL (78.0-98.0); Mean Platelet Volume 9.4 fL (7.4-10.4); Platelet Count 506 thou/uL (130-400); RBC Distribution Width 16.2 % (11.5-14.5); Red Blood Cell (RBC) Count 3.68 mill/uL (4.70-6.10); White Blood Cell (WBC) Count 16.3 thou/uL (4.8-10.8)
--- NOTE | 2018-10-11 09:24 | RAD ---
SINGLE VIEW OF THE CHEST: COMPARISON: 10/10/2018. HISTORY: Ventilated patient with respiratory failure. FINDINGS: A single view of the chest shows an enlarged but stable cardiomediastinal silhouette. Increased inte rstitial lung markings are present. There is a superimposed infiltrate in the left lower lobe. The endotracheal tube and NG tube are unchanged in position. The endotracheal tube is low-lying. IMPRESSION: Stable exam with left lower lobe infiltrate and low-lying endotracheal tube. POS: [facility]
[2018-10-11 09:51] LABS: Basophilic Stippling SLIGHT = 1-2 cells (100X) (None Seen); Burr Cells SLIGHT = 2-5 cells (100X) (0-1/hpf); Hypochromia SLIGHT = 6-15 cells (100X) (0-5/hpf); Lymphocytes 1 % (21-51); MDiff Complete? YES; Monocytes 3 % (0-10); Neutrophil 96 % (42-75); Platelet Morphology Comment Appears Increased; Polychromasia SLIGHT = 2-3 cells (100X) (0-2/hpf); Schistocytes SLIGHT = 2-5 cells (100X) (0-1/hpf); Tear Drops SLIGHT = 2-5 cells (100X) (0-1/hpf)
--- NOTE | 2018-10-11 10:03 | PDOC.PN ---
- Subjective Encounter Start Date: 10/11/18 Encounter Start Time: 10:01 Patient seen and examined in ICU. Intubated and no apparent distress No overnight events - Objective Resuscitation Status - Order Detail: 10/07/18 14:43 Resuscitation Status Routine Resuscitation Status: DNAR: NO Resuscitation Discussed with: Dr. Mock discussed with and sister DEBORAH Reviewed: Yes Vital Signs & Weight: Vital Signs (12 hours) Temp Pulse Resp BP Pulse Ox 10/11/18 07:02 53 L 128/52 L 10/11/18 06:00 25 H 10/11/18 04:00 98.6 F 18 10/11/18 03:17 49 L 18 100 10/11/18 03:00 19 10/11/18 00:00 98.6 F 23 H 10/10/18 22:06 57 L 18 98 10/10/18 22:00 22 H Weight Admit Weight 273 lb Weight 273 lb 9.498 oz Most Recent Monitor Data Heart Rate from ECG 56 NIBP 127/53 NIBP BP-Mean 77 Respiration from ECG 20 SpO2 99 I&O: 10/10/18 10/11/18 10/12/18 05:59 06:59 06:59 Intake Total Output Total Balance Result Diagrams: 10/11/18 04:50 10/11/18 04:50 Additional Labs: Accuchecks 10/11/18 10/10/18 10/10/18 04:55 21:21 16:28 POC Glucose 160 H 131 H 122 H 10/10/18 09:00 POC Glucose 119 H Phys Exam - Physical Examination Constitutional: NAD HEENT: sclera anicteric intubated Respiratory: no wheezing bradycardic Gastrointestinal: soft distended trace edema sedated Skin: no rash Dx/Plan (1) Acute respiratory failure with hypoxia Code(s): J96.01 - ACUTE RESPIRATORY FAILURE WITH HYPOXIA Status: Acute Comment: reintubated, ARDS (2) Diastolic heart failure Code(s): I50.30 - UNSPECIFIED DIASTOLIC (CONGESTIVE) HEART FAILURE Status: Acute (3) Right lower lobe pneumonia Code(s): J18.1 - LOBAR PNEUMONIA, UNSPECIFIED ORGANISM Status: Acute Qualifiers: Pneumonia type: due to unspecified organism Qualified Code(s): J18.1 - Lobar pneumonia, unspecified organism (4) Sepsis Code(s): A41.9 - SEPSIS, UNSPECIFIED ORGANISM Status: Acute Comment: Leukocytosis improving inspite of respiratory setback, no change to antibiotics at this time (5) Diabetes mellitus, insulin dependent (IDDM), controlled Code(s): E11.9 - TYPE 2 DIABETES MELLITUS WITHOUT COMPLICATIONS; Z79.4 - BEHAVIORAL SCIENCES DEPARTMENT CHAIR (CURRENT) USE OF INSULIN Status: Chronic Comment: restart home Lantus when eating, currently blood sugars well controlled (6) Hyperlipidemia Code(s): E78.5 - HYPERLIPIDEMIA, UNSPECIFIED Status: Chronic Qualifiers: Hyperlipidemia type: unspecified Qualified Code(s): E78.5 - Hyperlipidemia , unspecified Comment: Glycemic control inadequate. patient is on steroid. (7) Pulmonary fibrosis Code(s): J84.10 - PULMONARY FIBROSIS, UNSPECIFIED Status: Chronic - Plan cont current plan of care, respiratory therapy, DVT proph w/lovenox * . Intubated and not weanable f/u with pulmonology on steroids on lovenox and PPI. AM labs.
--- NOTE | 2018-10-11 11:01 | PRG ---
DATE OF SERVICE: 10/11/2018 SUBJECTIVE: Tashi Mejía remains intubated in the vent and low-dose sedation. OBJECTIVE: VITAL SIGNS: His pulse is 54, blood pressure 115/62, sats respiratory rate 19. His tube appears to be in his left mainstem and pullback at 22 at his lips, minimal responsive. CHEST: Bilateral rhonchi, crackles. CARDIAC: Sinus tach. ABDOMEN: No masses. His white count 16,000, H and H 9 and 33, platelet count 506. X-ray shows bilateral infiltrates. IMPRESSION: Respiratory failure, idiopathic pulmonary fibrosis, supraventricular tachycardia, pneumonia. Steroids, neb treatments, supportive care. To discuss with family regarding comfort care, extubation, etc. We will try minimize sedation. In the meantime, continue present treatment. One-half hour of critical time. Job ID: [id number]
[2018-10-11] MEDS: Enoxaparin Sodium 40 MG/0.4 ML SYRINGE SC SCH (20:10)
[2018-10-12] MEDS: methylPREDNISolone Sod Succ 40 MG VIAL IVP SCH ×2 (01:04→05:22)
[2018-10-12 03:38] LABS: Anion Gap 8 mmol/L (10-20); BUN (Urea Nitrogen) 42 mg/dL (8.4-25.7); Calc. Creatinine Clearance 144 mL/min (70-130); Calcium 8.5 mg/dL (7.8-10.44); Carbon Dioxide 36 mmol/L (23-31); Chloride 105 mmol/L (98-107); Estimated GFR-MDRD Greater than 90; Glucose 71 mg/dL (83-110); Potassium 5.4 mmol/L (3.5-5.1); Sodium 144 mmol/L (136-145)
[2018-10-12 03:40] LABS: Hypochromia SLIGHT = 6-15 cells (100X) (0-5/hpf); MDiff Complete? YES; Mean Corpuscular HGB CONC 29.5 g/dL (32.0-36.0); Mean Corpuscular Hemoglobin 26.8 pg (27.0-31.0); Mean Corpuscular Volume 90.9 fL (78.0-98.0); Mean Platelet Volume 9.1 fL (7.4-10.4); Monocytes 1 % (0-10); Neutrophil 99 % (42-75); Platelet Count 538 thou/uL (130-400); Platelet Morphology Comment Appears Increased; RBC Distribution Width 16.2 % (11.5-14.5); Red Blood Cell (RBC) Count 3.75 mill/uL (4.70-6.10); White Blood Cell (WBC) Count 20.6 thou/uL (4.8-10.8)
[2018-10-12 06:50] VITALS: BP 139/58
[2018-10-12 07:09] LABS: Actual Bicarbonate (HCO3a) 34.6 mEq/L (22-28); Base Excess (BEa) 7.8 mEq/L (-2.0 to +3.0); Calcium, Ionized 1.26 mmol/L (1.12-1.30); Carboxyhemoglobin (COHb) 1.4 gm% (0.0-3.0); Hemoglobin (Hb) 11.2 g/dL (14.0-18.0); O2 Tension (PaO2) 81.1 mmHg (> 70.0); Potassium - ABG Lab 5.37 mmol/L (3.70-5.30); pH, Arterial 7.38 (7.35-7.45)
[2018-10-12 07:15] LABS: CO2 Tension 60.3 mmHg (35.0-45.0); Puncture Site LRA
[2018-10-12 07:16] LABS: ALV-art Gradient 128.725 (0-20)
[2018-10-12] MEDS: Famotidine 20 MG TAB PO SCH (08:07)
[2018-10-12] MEDS: Amiodarone 200 MG TAB PO SCH (08:07)
[2018-10-12] MEDS: Metoprolol Tartrate 50 MG TAB PO SCH (08:11)
[2018-10-12] MEDS: NPH, Human Insulin Isophane 300 UNIT/3 ML VIAL SC SCH (08:12)
--- NOTE | 2018-10-12 09:20 | RAD ---
PORTABLE CHEST: HISTORY: CCU followup. COMPARISON: 10/11/2018 FINDINGS: Mild cardiomegaly. ET tube and NG tube remain in place. There is vascular congestion. There is dif fuse interstitial and hazy alveolar infiltrate throughout the left lung and mild interstitial infiltr ate or edema in the right lung. Small effusions. No significant change from yesterday. POS: [facility]
--- NOTE | 2018-10-12 09:26 | PRG ---
DATE OF SERVICE: 10/12/2018 SUBJECTIVE: Tashi Mejía, this morning, Diprivan was turned off. He opens his eyes. OBJECTIVE: VITAL SIGNS: Respiratory rate 22, temperature 98, blood pressure 137/54, pulse 80. CHEST: Extensive bilateral crackles. CARDIAC: Normal S1 and S2. ABDOMEN: Soft. No masses. EXTREMITIES: 2+ edema. DIAGNOSTIC DATA: White count 20,000, H and H are 10 and 34, and platelet count 538. PO2 is 81, pCO2 of 60, pH 7.38, rate of 4, 40%. BUN and creatinine are normal, potassium 5.4. X-ray shows extensive infiltrate, left chest. IMPRESSION: 1. Pulmonary fibrosis. 2. End-stage respiratory failure. 3. Severe deconditioning. 4. Superimposed pneumonia. PLAN: Daughter was at the bedside. Dr. Mock has spoken to them at length. They want comfort care. They wanted to be extubated. No trach or PEG. When family is ready, we will wean and extubate. One-half hour of critical care time. Job ID: [id number]
[2018-10-12] MEDS ORDERED: Morphine 10 MG/ML VIAL SLOW IVP PRN (09:33)
[2018-10-12] MEDS ORDERED: Lorazepam 2 MG/ML VIAL SLOW IVP PRN (09:34)
[2018-10-12 12:26] VITALS: TEMP 98.7
--- NOTE | 2018-10-13 05:32 | DIS ---
DATE OF ADMISSION: 09/26/2018 DATE OF DISCHARGE: 10/12/2018 SUMMARY: PRIMARY CARE PHYSICIAN: Dr. Kendall. ADMISSION DIAGNOSES: 1. Acute on chronic hypoxemic respiratory failure, secondary to detention pulmonary fibrosis. 2. Chronic atrial fibrillation. 3. Diabetes mellitus type 2. 4. Benign essential hypertension. 5. Dyslipidemia. 6. Gastroesophageal reflux disease. 7. Benign prostatic hyperplasia. CAUSE OF : 1. Acute myocardial infarction. 2. Acute hypoxemic respiratory failure, secondary to chronic pulmonary fibrosis. Other conditions; 1. Benign essential hypertension. 2. Diabetes mellitus type 2. 3. Chronic atrial fibrillation. TIME OF : 1620 hours or 4:20 p.m. on 10/12/2018. HOSPITAL COURSE: This was a 78-year-old male gentleman, who was admitted to the hospitalist services with above-mentioned medical diagnoses, had extensive past medical history of pulmonary fibrosis with chronic respiratory failure and multiple other comorbidities. The patient was initially admitted to ICU and subsequently downgraded to telemetry status, but then during this course, the patient's family as well as the patient have decided to transition to palliative care. The patient was kept in comfort. Extensive discussion with the patient's family was noted. More specifically, the patient's hospital course can be referred back to the chart. All consultants had been notified regarding this the same including family members. All questions and concerns have been addressed. Job ID: [id number]
== END 2018-10-12 16:20 | disposition expired | DRG 853 ==
LOC: ERS 16:58 → CCU 21:53
PROVIDERS: ADMIT Family Medicine; ATTEND Family Medicine
PROC: 5A09457 Assistance with Respiratory Ventilation, 24-96 Consecutive Hours, Continuous Positive Airway Pressure (ICD-10-PCS; 2018-09-26)
PROC: 0W993ZZ Drainage of Right Pleural Cavity, Percutaneous Approach (ICD-10-PCS; 2018-09-26)
PROC: 0BNK4ZZ Release Right Lung, Percutaneous Endoscopic Approach (ICD-10-PCS; principal; 2018-09-27)
PROC: 02H633Z Insertion of Infusion Device into Right Atrium, Percutaneous Approach (ICD-10-PCS; 2018-09-27)
PROC: 0B9M7ZX Drainage of Bilateral Lungs, Via Natural or Artificial Opening, Diagnostic (ICD-10-PCS; 2018-09-28)
PROC: 5A1955Z Respiratory Ventilation, Greater than 96 Consecutive Hours (ICD-10-PCS; 2018-10-01)
PROC: 0BH17EZ Insertion of Endotracheal Airway into Trachea, Via Natural or Artificial Opening (ICD-10-PCS; 2018-10-01)
DX: A41.9 Sepsis, unspecified organism (principal); J86.9 Pyothorax without fistula; I50.33 Acute on chronic diastolic (congestive) heart failure; J18.1 Lobar pneumonia, unspecified organism; I21.9 Acute myocardial infarction, unspecified; J96.21 Acute and chronic respiratory failure with hypoxia; B37.89 Other sites of candidiasis; E87.4 Mixed disorder of acid-base balance; J84.112 Idiopathic pulmonary fibrosis; I11.0 Hypertensive heart disease with heart failure; E11.65 Type 2 diabetes mellitus with hyperglycemia; I48.2 Chronic atrial fibrillation; N40.0 Benign prostatic hyperplasia without lower urinary tract symptoms; K21.9 Gastro-esophageal reflux disease without esophagitis; Z66 Do not resuscitate; Z51.5 Encounter for palliative care; I25.10 Atherosclerotic heart disease of native coronary artery without angina pectoris; T38.0X5A Adverse effect of glucocorticoids and synthetic analogues, initial encounter; B95.4 Other streptococcus as the cause of diseases classified elsewhere; R62.7 Adult failure to thrive; E78.5 Hyperlipidemia, unspecified; Z68.38 Body mass index [BMI] 38.0-38.9, adult; F41.9 Anxiety disorder, unspecified; E66.01 Morbid (severe) obesity due to excess calories; Z87.11 Personal history of peptic ulcer disease; Z87.891 Personal history of nicotine dependence; Z79.4 Long term (current) use of insulin; Z79.01 Long term (current) use of anticoagulants; Z88.7 Allergy status to serum and vaccine
CPT/HCPCS: 32554; 36415; 36416; 71045; 71275; 80048; 80053; 82150; 82805; 82945; 83605; 83615; 83735; 83986; 84100; 84157; 84478; 85007; 85027; 85060; 86850; 86900; 86901; 87070; 87077; 87116; 87186; 87205; 87206; 88112; 88305; 89051; 93005; 93306; 94002; 94003; 94640; 94660; 96365; 96367; A4216; J0456; J0670; J1100; J1120; J1250; J1642; J1650; J1815; J1825; J1940; J2001; J2248; J2250; J2270; J2370; J2543; J2704; J2920; J3010; J7050; J7611; J7620; Q9966